=== PATIENT | male | born 1940 | race Caucasian/White ===

== ENCOUNTER 2018-02-06 08:48 | Inpatient (IN) | payer MEDICARE ==
[2018-02-06] MEDS: SODIUM CHLORIDE 0.9% 1,000 ML IV STA ×2 (09:15→15:38)
--- NOTE | 2018-02-06 09:16 | ED ---
General Adult HPI - General Chief complaint: GI Bleed Stated complaint: Gi bleed Time Seen by Provider: 02/06/18 08:50 Source: patient, RN notes reviewed Mode of arrival: EMS - History of Present Illness Initial comments: Patient 77-year-old male presenting by EMS transferred from [facility] for GI bleed. Patient states he woke up at 4:30 in the morning to have a bowel movement. States that he noticed blood in the toilet. He states he got himself or erythema to the hospital. States while in the hospital he had repeated bowel movements. He states he became lightheaded dizzy. He does admit that he is on Coumadin for A. fib. His INR was 3.8. His hemoglobin was 15.8. Patient was hypotensive and lightheaded was given 2 units of FFP along with vitamin K. Patient's was stable and transferred here for admission. Patient does admit that he's had a GI bleed in the past approximately 2 years ago. Patient denies any pain at this time. States he is feeling better denies any lightheadedness or dizziness currently. - Related Data Home Medications Medication Instructions Recorded Confirmed Allopurinol [Zyloprim] 300 mg PO DAILY 02/06/18 02/06/18 Atenolol [Tenormin] 50 mg PO DAILY 02/06/18 02/06/18 Losartan Potassium 100 mg PO DAILY 02/06/18 02/06/18 Ranitidine HCl [Zantac] 150 mg PO BID 02/06/18 02/06/18 Simvastatin [Zocor] 20 mg PO HS 02/06/18 02/06/18 Tadalafil [Cialis] 20 mg PO DAILY PRN 02/06/18 02/06/18 Warfarin [Coumadin] 2.5 mg PO SUTUTHSA 02/06/18 02/06/18 Warfarin [Coumadin] 5 mg PO MOWEFR 02/06/18 02/06/18 amLODIPine [Norvasc] 5 mg PO DAILY 02/06/18 02/06/18 Allergies Allergy/AdvReac Type Severity Reaction Status Date / Time No Known Allergies Allergy Verified 02/06/18 09:30 Review of Systems ROS Statement: Those systems with pertinent positive or pertinent negative responses have been documented in the HPI. ROS Other: All systems not noted in ROS Statement are negative. Past Medical History Past Medical History: Atrial Fibrillation, CVA/TIA, GI Bleed, Hypertension History of Any Multi-Drug Resistant Organisms: None Reported Past Surgical History: Joint Replacement Additional Past Surgical History / Comment(s): LIPOMA REMOVED FROM RIGHT GROIN, HIPS Past Psychological History: No Psychological Hx Reported Smoking Status: Never smoker Past Alcohol Use History: Daily Past Drug Use History: None Reported General Exam - General Exam Comments Initial Comments: General: The patient is awake and alert, in no distress, and does not appear acutely ill. Eye: Pupils are equal, round and reactive to light, extra-ocular movements are intact. No nystagmus. There is normal conjunctiva bilaterally. No signs of icterus. Ears, nose, mouth and throat: There are moist mucous membranes and no oral lesions. Neck: The neck is supple, there is no tenderness or JVD. Cardiovascular: There is a regular rate and rhythm. No murmur, rub or gallop is appreciated. Respiratory: Lungs are clear to auscultation, respirations are non-labored, breath sounds are equal. No wheezes, stridor, rales, or rhonchi. Gastrointestinal: Soft on palpation. No rebound tenderness. No guarding. Musculoskeletal: Normal ROM, no tenderness. Strength 5/5. Sensation intact. Pulses equal bilaterally 2+. Neurological: A&O x 3. CN II-XII intact, There are no obvious motor or sensory deficits. Coordination appears grossly intact. Speech is normal. Skin: Skin is warm and dry and no rashes or lesions are noted. Psychiatric: Cooperative, appropriate mood & affect, normal judgment. Course Vital Signs 02/06/18 08:55 Temperature 97.1 F L Pulse Rate 60 Respiratory 18 Rate Blood Pressure 139/73 O2 Sat by Pulse 99 Oximetry Medical Decision Making - Medical Decision Making Patient reexamined at this time shows no signs of distress. His vitals are stable. His hemoglobin 12.5 at this time. Patient's INR was 3.8 at [facility] this morning. Patient was given vitamin K with 2 units of fresh frozen plasma. Case discussed with attending physician Dr. Crain. Patient will be admitted to the hospital consult to GI. - Lab Data Result diagrams: 02/06/18 09:15 Lab Results 02/06/18 Range/Units 09:15 WBC 12.5 H (3.8-10.6) k/uL RBC 3.70 L (4.30-5.90) m/uL Hgb 12.3 L (13.0-17.5) gm/dL Hct 35.9 L (39.0-53.0) % MCV 96.9 (80.0-100.0) fL MCH 33.1 (25.0-35.0) pg MCHC 34.2 (31.0-37.0) g/dL RDW 14.4 (11.5-15.5) % Plt Count 229 (150-450) k/uL Neutrophils % 82 % Lymphocytes % 12 % Monocytes % 5 % Eosinophils % 1 % Basophils % 0 % Neutrophils # 10.3 H (1.3-7.7) k/uL Lymphocytes # 1.4 (1.0-4.8) k/uL Monocytes # 0.6 (0-1.0) k/uL Eosinophils # 0.1 (0-0.7) k/uL Basophils # 0.0 (0-0.2) k/uL Disposition Clinical Impression: GI bleed Disposition: ADMITTED IP TO THIS [facility] Condition: Stable Is patient prescribed a controlled substance at d/c from ED?: No Referrals: Pedro Cade MD [Primary Care Provider] - 1-2 days Time of Disposition: 10:04
[2018-02-06 09:34] LABS: Basophils % (A) 0 %; Eosinophils # (A) 0.1 k/uL (0-0.7); Eosinophils % (A) 1 %; HCT 35.9 % (39.0-53.0); HGB 12.3 gm/dL (13.0-17.5); Lymphocytes # (A) 1.4 k/uL (1.0-4.8); Lymphocytes % (A) 12 %; MCH 33.1 pg (25.0-35.0); MCHC 34.2 g/dL (31.0-37.0); MCV 96.9 fL (80.0-100.0); Mean Platelet Volume 6.9; Monocytes # (A) 0.6 k/uL (0-1.0); Monocytes % (A) 5 %; Neutrophils # (A) 10.3 k/uL (1.3-7.7); Neutrophils % (A) 82 %; Platelet Count 229 k/uL (150-450); RDW 14.4 % (11.5-15.5); WBC 12.5 k/uL (3.8-10.6)
[2018-02-06] MEDS ORDERED: NALOXONE 0.4 MG/ML 1 ML VIAL IV PRN (10:04)
[2018-02-06 11:42] LABS: Glucose,Whole Blood 143 mg/dL (75-99)
[2018-02-06] MEDS ORDERED: Potassium Replacement Protocol 1 EACH MISC MISCELLANE PRN (12:06)
--- NOTE | 2018-02-06 12:07 | P.CNPUL ---
History of Present Illness Consult date: 02/06/18 Requesting physician: Terrence Pérez Reason for consult: other (GI bleeding) Chief complaint: Bright red blood per rectum History of present illness: This is a 77-year-old white male with history of chronic atrial fibrillation, maintained on Coumadin. Patient is also known to have history of hypertension, gout, GERD, patient presented to the ER at [facility] today with sudden onset of GI bleeding, patient noticed bright red blood per rectum and in the toilet when he had his bowel movement earlier today. Patient also felt lightheaded and dizzy, his INR on presentation was 3.8, hemoglobin was 15.8, patient received 2 units of fresh frozen plasma and vitamin K 5 mg. Transferred to [facility], and he was admitted. Patient had a similar episode back in 2016 and he was seen by Dr. Buatista on consultation, underwent colonoscopy, and he was found to have no active bleeding but he did have diverticulosis. Patient takes his Coumadin as instructed, and again his INR was in the therapeutic range. Did not require any blood transfusion so far , patient had a small amount of bloody bowel movement earlier today in our ER. Considering the active bleeding, patient was admitted to the ICU, and I was asked to see him on consultation. GI was already consulted, and the patient is hemodynamically stable at present, presently on 0.9 normal saline at 125 mL per hour. Review of Systems 14 point review of systems were reviewed, refer to pertinent positives in HPI otherwise remaining systems are negative. 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 History of Any Multi-Drug Resistant Organisms: None Reported Past Surgical History: Joint Replacement Additional Past Surgical History / Comment(s): LIPOMA REMOVED FROM RIGHT GROIN, BILATERAL TOTAL HIP ARTHROPLASTY, SKIN CANCER REMOVALS, COLONOSCOPY, BILATERAL CATARACT REMOVALS WITH LENS IMPLANTS. Past Anesthesia/Blood Transfusion Reactions: No Reported Reaction Additional Past Anesthesia/Blood Transfusion Reaction / Comment(s): Pt received blood without reaction. Smoking Status: Former smoker - Past Family History Father Family Medical History: Cancer Additional Family Medical History / Comment(s): Father of cancer (pt does not know what type) at the age of 83 yrs. Mother Family Medical History: Cancer, CVA/TIA Additional Family Medical History / Comment(s): Mother of a CVA at the age of 56yrs. Medications and Allergies Home Medications Medication Instructions Recorded Confirmed Type Allopurinol [Zyloprim] 300 mg PO DAILY 02/06/18 02/06/18 History Atenolol [Tenormin] 50 mg PO DAILY 02/06/18 02/06/18 History Losartan Potassium 100 mg PO DAILY 02/06/18 02/06/18 History Ranitidine HCl [Zantac] 150 mg PO BID 02/06/18 02/06/18 History Simvastatin [Zocor] 20 mg PO HS 02/06/18 02/06/18 History Tadalafil [Cialis] 20 mg PO DAILY PRN 02/06/18 02/06/18 History Warfarin [Coumadin] 2.5 mg PO SUTUTHSA 02/06/18 02/06/18 History Warfarin [Coumadin] 5 mg PO MOWEFR 02/06/18 02/06/18 History amLODIPine [Norvasc] 5 mg PO DAILY 02/06/18 02/06/18 History Allergies Allergy/AdvReac Type Severity Reaction Status Date / Time No Known Allergies Allergy Verified 02/06/18 09:30 Physical Exam Vitals: Vital Signs Temp Pulse Resp BP Pulse Ox 02/06/18 11:30 98.1 F 75 16 134/65 98 02/06/18 10:36 68 18 136/63 98 02/06/18 10:04 71 18 157/79 98 02/06/18 09:45 68 18 159/72 97 02/06/18 08:55 97.1 F L 60 18 139/73 99 Intake and Output 02/05/18 02/06/18 02/06/18 22:59 06:59 14:59 Other: Weight 83.007 kg Physical Exam: Revealed a 77-year-old white male, very pleasant, in no distress. Head: Atraumatic normocephalic. HEENT:[Neck is supple.] [No neck masses.] [No thyromegaly.] [No JVD.] Chest: [Clear throughout, no crackles, no rhonchi, no wheezes.] Cardiac Exam: [Irregular irregular rhythm Normal S1 and S2, no S3 gallop, no murmur.] Abdomen: [Soft, nontender, no megaly, no rebound, no guarding, normal bowel sounds.] Extremities: [No clubbing, no edema, no cyanosis.] Neurological Exam: [No focal neurologic deficit. Psychiatric: Normal mood affect and mental status examination. Lymphatics: No lymphadenopathy was appreciated.] Results - Laboratory Findings CBC and BMP: 02/06/18 09:15 Abnormal lab findings: Abnormal Labs 02/06/18 02/06/18 09:15 11:40 WBC 12.5 H RBC 3.70 L Hgb 12.3 L Hct 35.9 L Neutrophils # 10.3 H POC Glucose (mg/dL) 143 H Assessment and Plan Assessment: Impression: 1: Acute lower GI bleeding most likely secondary to diverticulosis, exacerbated by the fact that the patient is on Coumadin. 2: Previous history of lower GI bleeding from diverticular disease back in 2016 , did not require any intervention except contrast. 3 previous history of CVA and left-sided weakness, resolved. 4 chronic atrial fibrillation 59 essential hypertension 6 history of gout 7 history of erectile dysfunction. Recommendation: Monitor the patient in the ICU, serial hemoglobin and hematocrit will be done, GI was consulted, most likely he will not require colonoscopy. Patient will be given Protonix empirically, we'll continue to follow closely. I believe the patient has clearly clear-cut evidence of contraindication to anticoagulation. I wouldn't recommend restarting Coumadin anytime in the near future. Time with Patient: Greater than 30
[2018-02-06 13:06] LABS: HCT 34.7 % (39.0-53.0); HGB 11.8 gm/dL (13.0-17.5); MCH 33.6 pg (25.0-35.0); MCHC 34.1 g/dL (31.0-37.0); MCV 98.5 fL (80.0-100.0); Mean Platelet Volume 7.2; Platelet Count 205 k/uL (150-450); RBC 3.52 m/uL (4.30-5.90); RDW 14.1 % (11.5-15.5); WBC 10.8 k/uL (3.8-10.6)
[2018-02-06 13:08] LABS: INR 2.1 (<1.2); Prothrombin Time 19.4 sec (9.0-12.0)
[2018-02-06] MEDS: PANTOPRAZOLE 40 MG/10 ML VIAL IVP SCH ×2 (13:13→21:38)
[2018-02-06 13:17] LABS: ALT 32 U/L (21-72); AST 27 U/L (17-59); Albumin 3.6 g/dL (3.5-5.0); Alkaline Phosphatase 50 U/L (38-126); Anion Gap 14 mmol/L; Blood Urea Nitrogen 11 mg/dL (9-20); Calcium 8.6 mg/dL (8.4-10.2); Carbon Dioxide 21 mmol/L (22-30); Chloride 104 mmol/L (98-107); Glucose 134 mg/dL (74-99); Magnesium 1.3 mg/dL (1.6-2.3); Phosphorus 3.8 mg/dL (2.5-4.5); Potassium 4.2 mmol/L (3.5-5.1); Sodium 139 mmol/L (137-145); Total Bilirubin 1.8 mg/dL (0.2-1.3)
[2018-02-06] MEDS: POTASSIUM CHLORIDE 10 MEQ in WATER FOR INJECTION 1 100ML.BAG IVPB SCH ×3 (14:00→21:56)
--- NOTE | 2018-02-06 14:47 | P.CONS ---
History of Present Illness - Reason for Consult Consult date: 02/06/18 GI bleed Requesting physician: Nirali Gonzalez - History of Present Illness 77-year-old male with a history of A. fib maintained on warfarin, colonic diverticulosis admitted with acute painless rectal bleeding. Bleeding started early this morning bright red in nature hourly bowel movements with lightheadedness dizziness. He was initially evaluated at [facility] and transferred to [place] shortly thereafter for further evaluation. Prior to transfer INR was 3.8. Hemoglobin 15.8. He received FFP and 5 mg of vitamin K. Presently hemoglobin is 11.8. INR is 2.1. BUN 11. Creatinine 0.5. Denies fever chills hematemesis or melena. Denies epigastric pain nausea or vomiting. No alcohol or NSAID usage. He has a history of lower GI bleed [address] [facility] underwent screening colonoscopy with findings colonic diverticulosis. No GI bleed since. Review of Systems Constitutional: Denies fever, chills, sweats, weight gain, or loss. HEENT: Negative for migraines, blurred vision or loss, earaches, drainage, tinnitus, oral mucosal lesions, dysphagia, or odynophagia. Cardiac: Negative for chest pain, arrhythmias, or palpitation. Respiratory: Negative for shortness of breath, hemoptysis, cough, or sputum production. Gastrointestinal: See HPI for pertinent findings. Genitourinary: Negative for hematuria, urgency, frequency, polyuria, dysuria, or penile discharge. Musculoskeletal: Negative for muscle aches, swelling, arthritis, and arthralgias. Neurologic: Negative for stroke or TIA. Endocrine: Negative for thyroid problems. Skin: Negative for rash or itching. 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 History of Any Multi-Drug Resistant Organisms: None Reported Past Surgical History: Joint Replacement Additional Past Surgical History / Comment(s): LIPOMA REMOVED FROM RIGHT GROIN, BILATERAL TOTAL HIP ARTHROPLASTY, SKIN CANCER REMOVALS, COLONOSCOPY, BILATERAL CATARACT REMOVALS WITH LENS IMPLANTS. Past Anesthesia/Blood Transfusion Reactions: No Reported Reaction Additional Past Anesthesia/Blood Transfusion Reaction / Comm: Pt received blood without reaction. Smoking Status: Former smoker - Past Family History Father Family Medical History: Cancer Additional Family Medical History / Comment(s): Father of cancer (pt does not know what type) at the age of 83 yrs. Mother Family Medical History: Cancer, CVA/TIA Additional Family Medical History / Comment(s): Mother of a CVA at the age of 56yrs. Medications and Allergies Home Medications Medication Instructions Recorded Confirmed Type Allopurinol [Zyloprim] 300 mg PO DAILY 02/06/18 02/06/18 History Atenolol [Tenormin] 50 mg PO DAILY 02/06/18 02/06/18 History Losartan Potassium 100 mg PO DAILY 02/06/18 02/06/18 History Ranitidine HCl [Zantac] 150 mg PO BID 02/06/18 02/06/18 History Simvastatin [Zocor] 20 mg PO HS 02/06/18 02/06/18 History Tadalafil [Cialis] 20 mg PO DAILY PRN 02/06/18 02/06/18 History Warfarin [Coumadin] 2.5 mg PO SUTUTHSA 02/06/18 02/06/18 History Warfarin [Coumadin] 5 mg PO MOWEFR 02/06/18 02/06/18 History amLODIPine [Norvasc] 5 mg PO DAILY 02/06/18 02/06/18 History Allergies Allergy/AdvReac Type Severity Reaction Status Date / Time No Known Allergies Allergy Verified 02/06/18 09:30 Physical Exam Vitals: Vital Signs Temp Pulse Resp BP Pulse Ox 02/06/18 13:00 68 12 123/69 99 02/06/18 12:30 79 19 136/74 100 02/06/18 12:00 97.8 F 73 23 150/87 99 02/06/18 11:41 98 02/06/18 11:30 98.1 F 75 16 134/65 98 02/06/18 10:36 68 18 136/63 98 02/06/18 10:04 71 18 157/79 98 02/06/18 09:45 68 18 159/72 97 02/06/18 08:55 97.1 F L 60 18 139/73 99 Intake and Output 02/05/18 02/06/18 02/06/18 22:59 06:59 14:59 Intake Total 100 Output Total 450 Balance -350 Intake: IV 100 Sodium Chloride 0.9% 1, 100 000 ml @ 100 mls/hr IV . Q10H STA Rx#:[id number] Output: Urine 400 Stool 50 Other: # Voids 1 # Bowel Movements 3 Weight 83.007 kg General appearance: The patient is alert, oriented, in no acute distress. HET: Head is normocephalic and atraumatic. Pupils are equal and reactive. Oropharynx is clear without lesions. Neck: Supple without lymphadenopathy. Trachea midline. Heart: S1 S2. Regular rate and rhythm. Lungs: No crackles or wheezes are heard. Abdomen: Soft, nontender, nondistended with bowel sounds. No peritoneal signs. No palpable organomegaly or masses. Extremities: Normal skin color and turgor. No cyanosis, rash, ulceration, clubbing, or edema. Radial and pedal pulses are 2/4 bilaterally. Neurological: No focal deficits. Strength and sensation are grossly intact. Rectal: Presently on bedpan burgundy colored bowel movements seen. Results CBC & Chem 7: 02/07/18 02:15 02/07/18 02:15 Labs: Abnormal Lab Results - Last 24 Hours (Table) 02/06/18 02/06/18 02/06/18 Range/Units 09:15 11:40 12:49 WBC 12.5 H (3.8-10.6) k/uL RBC 3.70 L (4.30-5.90) m/uL Hgb 12.3 L (13.0-17.5) gm/dL Hct 35.9 L (39.0-53.0) % Neutrophils # 10.3 H (1.3-7.7) k/uL PT (9.0-12.0) sec INR (<1.2) Carbon Dioxide 21 L (22-30) mmol/L Creatinine 0.58 L (0.66-1.25) mg/dL Glucose 134 H (74-99) mg/dL POC Glucose (mg/dL) 143 H (75-99) mg/dL Magnesium 1.3 L (1.6-2.3) mg/dL Total Bilirubin 1.8 H (0.2-1.3) mg/dL Total Protein 6.0 L (6.3-8.2) g/dL 02/06/18 02/06/18 Range/Units 12:49 12:49 WBC 10.8 H (3.8-10.6) k/uL RBC 3.52 L (4.30-5.90) m/uL Hgb 11.8 L (13.0-17.5) gm/dL Hct 34.7 L (39.0-53.0) % Neutrophils # (1.3-7.7) k/uL PT 19.4 H (9.0-12.0) sec INR 2.1 H (<1.2) Carbon Dioxide (22-30) mmol/L Creatinine (0.66-1.25) mg/dL Glucose (74-99) mg/dL POC Glucose (mg/dL) (75-99) mg/dL Magnesium (1.6-2.3) mg/dL Total Bilirubin (0.2-1.3) mg/dL Total Protein (6.3-8.2) g/dL Assessment and Plan (1) GI bleed Narrative/Plan: 77-year-old gentleman history of colonic diverticular bleed 2 years ago admitted with acute painless lower GI bleed burgundy color bowel movements hourly since early this morning with super therapeutic INR most likely exacerbating GI bleed. Suspect bleeding secondary to colonic diverticulosis however upper GI source cannot be entirely excluded. Current Visit: Yes Status: Acute Code(s): K92.2 - GASTROINTESTINAL HEMORRHAGE, UNSPECIFIED SNOMED Code(s): 02416270 (2) Acute blood loss anemia Current Visit: Yes Status: Acute Code(s): D62 - ACUTE POSTHEMORRHAGIC ANEMIA SNOMED Code(s): 046460670 (3) Colon, diverticulosis Current Visit: Yes Status: Acute Code(s): K57.30 - DVRTCLOS OF LG INT W/O PERFORATION OR ABSCESS W/O BLEEDING SNOMED Code(s): 045232656 (4) Warfarin-induced coagulopathy Current Visit: Yes Status: Acute Code(s): D68.32 - HEMORRHAGIC DISORD D/T EXTRINSIC CIRCULATING ANTICOAGULANTS; T45.515A - ADVERSE EFFECT OF ANTICOAGULANTS, INITIAL ENCOUNTER SNOMED Code(s): 76351611 Plan: 1. Nothing by mouth except medications ice chips and popsicles. 2. CBC every 6 hours. PT/INR am. ICU monitoring. 3. Consideration for a tagged RBC scan if bleeding does not improve. 4. Inpatient endoscopic exams not planned at this time last colonoscopy was 2 years ago we'll review medical records and place report on chart for review. 5. Protonix 40 mg IV daily. Hold Coumadin. We'll follow closely with you. Thank you for this kind referral and the opportunity to participate in the care of your patient. This consultation was discussed with Dr. Jimenez. The impression and plan of care have been directed as dictated.
[2018-02-06 15:18] LABS: HCT 28.2 % (39.0-53.0); MCH 33.4 pg (25.0-35.0); MCHC 34.3 g/dL (31.0-37.0); MCV 97.5 fL (80.0-100.0); Mean Platelet Volume 6.7; Platelet Count 208 k/uL (150-450); RBC 2.89 m/uL (4.30-5.90); RDW 14.4 % (11.5-15.5)
[2018-02-06 15:20] LABS: HGB 9.7 gm/dL (13.0-17.5)
--- NOTE | 2018-02-06 21:33 | P.HPIM ---
History of Present Illness This is a pleasant 87 years old male with past medical history of atrial fibrillation, CVA/TIA, GERD, GI bleed, hyperlipidemia, hypertension, osteoarthritis, who presents with possible lower GI bleed. Patient was noticed painless bleeding per rectum of one-day duration that was started this morning, associated with lightheadedness and dizziness. he was taking extra 2 tab of aspirin for the last two day on the top of his usual baby aspirin. Patient was transferred to the intensive care unit for possible lower GI bleed. His blood pressures in the ICU was 92/56 heart rate 75. Lab work shows creatinine at 0.5, sodium 139 potassium 4.2, magnesium low at 1.3 LFTs within normal limits. INR is 2.1 WBC 10 K, hemoglobin dropped from 12.3 to 9.7 platelet count 208, patient is getting 2 units of red blood cells and 2 units of fresh frozen plasma due to his coagulopathy. Review of Systems CONSTITUTIONAL: No fever, no malaise, no fatigue. HEENT: No recent visual problems or hearing problems. Denied any sore throat. CARDIOVASCULAR: No orthopnea, PND, no palpitations, no syncope. PULMONARY: No shortness of breath, no cough, no hemoptysis. GASTROINTESTINAL: No diarrhea, no nausea, no vomiting, no abdominal pain. Normoactive bowel sounds. NEUROLOGICAL: No headaches, no weakness, no numbness. HEMATOLOGICAL: Denies any bleeding or petechiae. GENITOURINARY: Denies any burning micturition, frequency, or urgency. MUSCULOSKELETAL/RHEUMATOLOGICAL: Denies any joint pain, swelling, or any muscle pain. ENDOCRINE: Denies any polyuria or polydipsia. 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 History of Any Multi-Drug Resistant Organisms: None Reported Past Surgical History: Joint Replacement Additional Past Surgical History / Comment(s): LIPOMA REMOVED FROM RIGHT GROIN, BILATERAL TOTAL HIP ARTHROPLASTY, SKIN CANCER REMOVALS, COLONOSCOPY, BILATERAL CATARACT REMOVALS WITH LENS IMPLANTS. Past Anesthesia/Blood Transfusion Reactions: No Reported Reaction Additional Past Anesthesia/Blood Transfusion Reaction / Comment(s): Pt received blood without reaction. Smoking Status: Former smoker - Past Family History Father Family Medical History: Cancer Additional Family Medical History / Comment(s): Father of cancer (pt does not know what type) at the age of 83 yrs. Mother Family Medical History: Cancer, CVA/TIA Additional Family Medical History / Comment(s): Mother of a CVA at the age of 56yrs. Medications and Allergies Home Medications Medication Instructions Recorded Confirmed Type Allopurinol [Zyloprim] 300 mg PO DAILY 02/06/18 02/06/18 History Atenolol [Tenormin] 50 mg PO DAILY 02/06/18 02/06/18 History Losartan Potassium 100 mg PO DAILY 02/06/18 02/06/18 History Ranitidine HCl [Zantac] 150 mg PO BID 02/06/18 02/06/18 History Simvastatin [Zocor] 20 mg PO HS 02/06/18 02/06/18 History Tadalafil [Cialis] 20 mg PO DAILY PRN 02/06/18 02/06/18 History Warfarin [Coumadin] 2.5 mg PO SUTUTHSA 02/06/18 02/06/18 History Warfarin [Coumadin] 5 mg PO MOWEFR 02/06/18 02/06/18 History amLODIPine [Norvasc] 5 mg PO DAILY 02/06/18 02/06/18 History Allergies Allergy/AdvReac Type Severity Reaction Status Date / Time No Known Allergies Allergy Verified 02/06/18 09:30 Physical Exam Vitals: Vital Signs Temp Pulse Resp BP Pulse Ox 02/06/18 11:30 98.1 F 75 16 134/65 98 02/06/18 10:36 68 18 136/63 98 02/06/18 10:04 71 18 157/79 98 02/06/18 09:45 68 18 159/72 97 02/06/18 08:55 97.1 F L 60 18 139/73 99 Intake and Output 02/05/18 02/06/18 02/06/18 22:59 06:59 14:59 Other: Weight 83.007 kg GENERAL: The patient is alert and oriented x3, not in any acute distress. Well developed, well nourished. HEENT: Pupils are round and equally reacting to light. EOMI. No scleral icterus. No conjunctival pallor. Normocephalic, atraumatic. No pharyngeal erythema. No thyromegaly. CARDIOVASCULAR: S1 and S2 present. No murmurs, rubs, or gallops. PULMONARY: Chest is clear to auscultation, no wheezing or crackles. ABDOMEN: Soft, nontender, nondistended, normoactive bowel sounds. No palpable organomegaly. MUSCULOSKELETAL: No joint swelling or deformity. EXTREMITIES: No cyanosis, clubbing, or pedal edema. NEUROLOGICAL: Gross neurological examination did not reveal any focal deficits. SKIN: No rashes. Results CBC & Chem 7: 02/06/18 15:15 02/06/18 12:49 Labs: Abnormal Lab Results - Last 24 Hours (Table) 02/06/18 02/06/18 Range/Units 09:15 11:40 WBC 12.5 H (3.8-10.6) k/uL RBC 3.70 L (4.30-5.90) m/uL Hgb 12.3 L (13.0-17.5) gm/dL Hct 35.9 L (39.0-53.0) % Neutrophils # 10.3 H (1.3-7.7) k/uL POC Glucose (mg/dL) 143 H (75-99) mg/dL Thrombosis Risk Factor Assmnt - Choose All That Apply Any of the Below Risk Factors Present?: Yes Each Factor Represents 1 point: Obesity (BMI >25) Other Risk Factors: Yes Each Risk Factor Represents 2 Points: Age 61-74 years, Malignancy Other congenital or acquired thrombophilia - If yes, enter type in comment: No Thrombosis Risk Factor Assessment Total Risk Factor Score: 5 Thrombosis Risk Factor Assessment Level: High Risk Assessment and Plan Plan: -Acute painless rectal bleeding, with a drop in hemoglobin and blood pressure. Patient admitted to the ICU. Monitor lytes labs and vitals. GI and hyperbaric welder diver consult are appreciated. They recommended RBC scan if the bleeding does not improve. Holding Coumadin. Continue with Protonix. No colonoscopy is planned currently as per consult team -Coagulopathy with INR 2.1, patient was on Coumadin which is held in view of acute bleeding per rectum, patient got 2 units of PPF. Follow-up INR. Most likely he would not be started on Coumadin again as per hyperbaric welder diver recommendation -History of CVA/TIA, and in view of history of A. fib and stroke he was on Coumadin. DC Coumadin now for active bleeding. also DC aspirin -History of A. fib, DC Coumadin as above. Hold atenolol in view of low blood pressure and active bleeding -Hypertension. Hold atenolol 50 mg daily and losartan 100 mg daily and Norvasc 5 mg daily in view of his low blood pressure -History of hyperlipidemia, was on Zocor 20 mg daily DVT prophylaxis SCDs, no anticoagulation in view of bleeding GI prophylaxis continue with Protonix Prognosis is guarded
[2018-02-07 02:34] LABS: HCT 25.9 % (39.0-53.0); HGB 8.6 gm/dL (13.0-17.5); MCH 31.8 pg (25.0-35.0); MCHC 33.4 g/dL (31.0-37.0); MCV 95.5 fL (80.0-100.0); Mean Platelet Volume 7.6; Platelet Count 144 k/uL (150-450); RBC 2.71 m/uL (4.30-5.90); WBC 9.3 k/uL (3.8-10.6)
[2018-02-07 02:38] LABS: INR 1.4 (<1.2); Prothrombin Time 13.2 sec (9.0-12.0)
[2018-02-07 02:47] LABS: ALT 31 U/L (21-72); AST 22 U/L (17-59); Albumin 2.8 g/dL (3.5-5.0); Alkaline Phosphatase 34 U/L (38-126); Anion Gap 10 mmol/L; Blood Urea Nitrogen 12 mg/dL (9-20); Calcium 7.5 mg/dL (8.4-10.2); Carbon Dioxide 23 mmol/L (22-30); Chloride 107 mmol/L (98-107); Glucose 131 mg/dL (74-99); Magnesium 1.3 mg/dL (1.6-2.3); Phosphorus 3.3 mg/dL (2.5-4.5); Potassium 3.7 mmol/L (3.5-5.1); Sodium 140 mmol/L (137-145); Total Bilirubin 2.8 mg/dL (0.2-1.3); Total Protein 4.8 g/dL (6.3-8.2)
[2018-02-07] MEDS ORDERED: Potassium Replacement Protocol 1 EACH MISC MISCELLANE PRN ×2 (03:20→16:21)
[2018-02-07] MEDS ORDERED: Magnesium Replacement Protocol 1 EACH MISC MISCELLANE PRN (03:21)
[2018-02-07] MEDS: MAGNESIUM SULFATE-D5W PMX 1 GM in DEXTROSE/WATER 1 100ML.BAG IVPB SCH ×5 (04:57→18:49)
[2018-02-07 08:57] LABS: HCT 23.6 % (39.0-53.0); HGB 7.9 gm/dL (13.0-17.5); MCH 32.2 pg (25.0-35.0); MCHC 33.6 g/dL (31.0-37.0); Mean Platelet Volume 7.1; Platelet Count 140 k/uL (150-450); RBC 2.46 m/uL (4.30-5.90); RDW 15.5 % (11.5-15.5); WBC 9.3 k/uL (3.8-10.6)
[2018-02-07] MEDS: PANTOPRAZOLE 40 MG/10 ML VIAL IVP SCH ×2 (09:59→20:25)
[2018-02-07] MEDS ORDERED: MAGNESIUM SULFATE-D5W PMX 1 GM in DEXTROSE/WATER 1 100ML.BAG IVPB SCH (10:00)
--- NOTE | 2018-02-07 10:11 | P.PN ---
Subjective Progress Note Date: 02/07/18 Principal diagnosis: GI bleed Admitted with suspected colonic diverticular bleed. Still passing dark red maroon-colored bowel movements but less in frequency and quantity. Denies abdominal pain. Afebrile. No emesis. Hemoglobin 7.9. INR 1.4. Increased total bilirubin 2.8. AST ALT AP unremarkable. Received 2 units of blood 2 FFP since admission. Objective - Vital Signs Vital signs: Vital Signs Temp 98.2 F 02/07/18 08:30 Pulse 68 02/07/18 09:00 Resp 16 02/07/18 09:00 BP 119/65 02/07/18 09:00 Pulse Ox 99 02/07/18 09:00 Intake & Output 02/06/18 02/07/18 02/07/18 18:59 06:59 18:59 Intake Total 2366 2416 300 Output Total 850 580 315 Balance 1516 1836 -15 Weight 83.007 kg 85.3 kg Intake: IV 1450 1500 300 Sodium Chloride 0.9% 1, 1450 1500 300 000 ml @ 100 mls/hr IV . Q10H STA Rx#:[id number] Blood Product 916 916 Ffp 24 Cpd Unit 310 [id number] Ffp 24 Cpd Unit 0 296 [id number] Rc As-1 Unit 310 [id number] Rc As-1 Unit 310 [id number] Output: Urine 800 480 275 Stool 50 100 40 Other: Voiding Method Urinal Urinal # Voids 2 2 # Bowel Movements 5 5 - Exam General appearance: The patient is alert, oriented, in no acute distress. HET: Head is normocephalic and atraumatic. Pupils are equal and reactive. Oropharynx is clear without lesions. Neck: Supple without lymphadenopathy. Trachea midline. Heart: S1 S2. Regular rate and rhythm. Lungs: No crackles or wheezes are heard. Abdomen: Soft, nontender, nondistended with bowel sounds. No peritoneal signs. No palpable organomegaly or masses. Extremities: Normal skin color and turgor. No cyanosis, rash, ulceration, clubbing, or edema. Radial and pedal pulses are 2/4 bilaterally. Neurological: No focal deficits. Strength and sensation are grossly intact. - Labs CBC & Chem 7: 02/07/18 08:42 02/07/18 02:15 Labs: Abnormal Lab Results - Last 24 Hours (Table) 02/06/18 02/06/18 02/06/18 Range/Units 11:40 12:49 12:49 WBC 10.8 H (3.8-10.6) k/uL RBC 3.52 L (4.30-5.90) m/uL Hgb 11.8 L (13.0-17.5) gm/dL Hct 34.7 L (39.0-53.0) % Plt Count (150-450) k/uL PT (9.0-12.0) sec INR (<1.2) Carbon Dioxide 21 L (22-30) mmol/L Creatinine 0.58 L (0.66-1.25) mg/dL Glucose 134 H (74-99) mg/dL POC Glucose (mg/dL) 143 H (75-99) mg/dL Calcium (8.4-10.2) mg/dL Magnesium 1.3 L (1.6-2.3) mg/dL Total Bilirubin 1.8 H (0.2-1.3) mg/dL Alkaline Phosphatase (38-126) U/L Total Protein 6.0 L (6.3-8.2) g/dL Albumin (3.5-5.0) g/dL Crossmatch 02/06/18 02/06/18 02/06/18 Range/Units 12:49 15:15 15:23 WBC (3.8-10.6) k/uL RBC 2.89 L (4.30-5.90) m/uL Hgb 9.7 L D (13.0-17.5) gm/dL Hct 28.2 L (39.0-53.0) % Plt Count (150-450) k/uL PT 19.4 H (9.0-12.0) sec INR 2.1 H (<1.2) Carbon Dioxide (22-30) mmol/L Creatinine (0.66-1.25) mg/dL Glucose (74-99) mg/dL POC Glucose (mg/dL) (75-99) mg/dL Calcium (8.4-10.2) mg/dL Magnesium (1.6-2.3) mg/dL Total Bilirubin (0.2-1.3) mg/dL Alkaline Phosphatase (38-126) U/L Total Protein (6.3-8.2) g/dL Albumin (3.5-5.0) g/dL Crossmatch See Detail 02/07/18 02/07/18 02/07/18 Range/Units 02:15 02:15 02:15 WBC (3.8-10.6) k/uL RBC 2.71 L (4.30-5.90) m/uL Hgb 8.6 L (13.0-17.5) gm/dL Hct 25.9 L (39.0-53.0) % Plt Count 144 L (150-450) k/uL PT 13.2 H (9.0-12.0) sec INR 1.4 H (<1.2) Carbon Dioxide (22-30) mmol/L Creatinine (0.66-1.25) mg/dL Glucose 131 H (74-99) mg/dL POC Glucose (mg/dL) (75-99) mg/dL Calcium 7.5 L (8.4-10.2) mg/dL Magnesium 1.3 L (1.6-2.3) mg/dL Total Bilirubin 2.8 H (0.2-1.3) mg/dL Alkaline Phosphatase 34 L (38-126) U/L Total Protein 4.8 L (6.3-8.2) g/dL Albumin 2.8 L (3.5-5.0) g/dL Crossmatch 02/07/18 Range/Units 08:42 WBC (3.8-10.6) k/uL RBC 2.46 L (4.30-5.90) m/uL Hgb 7.9 L (13.0-17.5) gm/dL Hct 23.6 L (39.0-53.0) % Plt Count 140 L (150-450) k/uL PT (9.0-12.0) sec INR (<1.2) Carbon Dioxide (22-30) mmol/L Creatinine (0.66-1.25) mg/dL Glucose (74-99) mg/dL POC Glucose (mg/dL) (75-99) mg/dL Calcium (8.4-10.2) mg/dL Magnesium (1.6-2.3) mg/dL Total Bilirubin (0.2-1.3) mg/dL Alkaline Phosphatase (38-126) U/L Total Protein (6.3-8.2) g/dL Albumin (3.5-5.0) g/dL Crossmatch Assessment and Plan (1) GI bleed Narrative/Plan: 77-year-old gentleman history of colonic diverticular bleed 2 years ago admitted with acute painless lower GI bleed burgundy color bowel movements hourly since early this morning with super therapeutic INR most likely exacerbating GI bleed. Suspect bleeding secondary to colonic diverticulosis however upper GI source cannot be entirely excluded. Current Visit: Yes Status: Acute Code(s): K92.2 - GASTROINTESTINAL HEMORRHAGE, UNSPECIFIED SNOMED Code(s): 05600778 (2) Acute blood loss anemia Current Visit: Yes Status: Acute Code(s): D62 - ACUTE POSTHEMORRHAGIC ANEMIA SNOMED Code(s): 972839072 (3) Colon, diverticulosis Current Visit: Yes Status: Acute Code(s): K57.30 - DVRTCLOS OF LG INT W/O PERFORATION OR ABSCESS W/O BLEEDING SNOMED Code(s): 568426595 (4) Warfarin-induced coagulopathy Current Visit: Yes Status: Acute Code(s): D68.32 - HEMORRHAGIC DISORD D/T EXTRINSIC CIRCULATING ANTICOAGULANTS; T45.515A - ADVERSE EFFECT OF ANTICOAGULANTS, INITIAL ENCOUNTER SNOMED Code(s): 19486451 (5) Hyperbilirubinemia Narrative/Plan: Most likely from acute GI bleed Current Visit: Yes Status: Acute Code(s): E80.6 - OTHER DISORDERS OF BILIRUBIN METABOLISM SNOMED Code(s): 26398458 Plan: 1. CBC monitoring. Continue to hold anticoagulation. 2. Protonix 40 mg twice daily. 3. Nothing by mouth except medications and ice chips sparingly. 4. Inpatient endoscopic exam not planned at this time but contingent on clinical course. Assessment and plan a care discussed with Dr. Jimenez
--- NOTE | 2018-02-07 10:13 | P.PN ---
Subjective This is a pleasant 87 years old male with past medical history of atrial fibrillation, CVA/TIA, GERD, GI bleed, hyperlipidemia, hypertension, osteoarthritis, who presents with possible lower GI bleed. Patient was noticed painless bleeding per rectum of one-day duration that was started this morning, associated with lightheadedness and dizziness. he was taking extra 2 tab of aspirin for the last two day on the top of his usual baby aspirin for his headache which is improved now. Patient was transferred to the intensive care unit for possible lower GI bleed. His blood pressures in the ICU was 92/56 heart rate 75. Lab work shows creatinine at 0.5, sodium 139 potassium 4.2, magnesium low at 1.3 LFTs within normal limits. INR is 2.1 WBC 10 K, hemoglobin dropped from 12.3 to 9.7 platelet count 208, patient is getting 2 units of red blood cells and 2 units of fresh frozen plasma due to his coagulopathy. 02/07/2018 Patient feels better. He denies chest pain or dyspnea. No more headache. No abdominal pain. He still have bleeding per rectum which is painless. His blood pressure is improved and is 119/65, no tachycardia. His hemoglobin is at 7.9, platelets low at 140, WBC 9.3K WNL, INR is down to 1.4, and magnesium is low at 1.3 ROS CONSTITUTIONAL: No fever, no malaise, no fatigue. HEENT: No recent visual problems or hearing problems. Denied any sore throat. CARDIOVASCULAR: No orthopnea, PND, no palpitations, no syncope. PULMONARY: No shortness of breath, no cough, no hemoptysis. GASTROINTESTINAL: No diarrhea, no nausea, no vomiting, no abdominal pain. Normoactive bowel sounds. NEUROLOGICAL: No headaches, no weakness, no numbness. HEMATOLOGICAL: Denies any bleeding or petechiae. GENITOURINARY: Denies any burning micturition, frequency, or urgency. MUSCULOSKELETAL/RHEUMATOLOGICAL: Denies any joint pain, swelling, or any muscle pain. ENDOCRINE: Denies any polyuria or polydipsia. Objective - Vital Signs Vital signs: Vital Signs Temp 98.2 F 02/07/18 08:30 Pulse 68 02/07/18 09:00 Resp 16 02/07/18 09:00 BP 119/65 02/07/18 09:00 Pulse Ox 99 02/07/18 09:00 Intake & Output 02/06/18 02/07/18 02/07/18 18:59 06:59 18:59 Intake Total 2366 2416 300 Output Total 850 580 315 Balance 1516 1836 -15 Weight 83.007 kg 85.3 kg Intake: IV 1450 1500 300 Sodium Chloride 0.9% 1, 1450 1500 300 000 ml @ 100 mls/hr IV . Q10H STA Rx#:[id number] Blood Product 916 916 Ffp 24 Cpd Unit 310 [id number] Ffp 24 Cpd Unit 0 296 [id number] Rc As-1 Unit 310 [id number] Rc As-1 Unit 310 [id number] Output: Urine 800 480 275 Stool 50 100 40 Other: Voiding Method Urinal Urinal # Voids 2 2 # Bowel Movements 5 5 - Exam GENERAL: The patient is alert and oriented x3, not in any acute distress. Well developed, well nourished. HEENT: Pupils are round and equally reacting to light. EOMI. No scleral icterus. No conjunctival pallor. Normocephalic, atraumatic. No pharyngeal erythema. No thyromegaly. CARDIOVASCULAR: S1 and S2 present. No murmurs, rubs, or gallops. PULMONARY: Chest is clear to auscultation, no wheezing or crackles. ABDOMEN: Soft, nontender, nondistended, normoactive bowel sounds. No palpable organomegaly. MUSCULOSKELETAL: No joint swelling or deformity. EXTREMITIES: No cyanosis, clubbing, or pedal edema. NEUROLOGICAL: Gross neurological examination did not reveal any focal deficits. SKIN: No rashes. - Labs CBC & Chem 7: 02/07/18 08:42 02/07/18 02:15 Labs: Abnormal Lab Results - Last 24 Hours (Table) 02/06/18 02/06/18 02/06/18 Range/Units 11:40 12:49 12:49 WBC 10.8 H (3.8-10.6) k/uL RBC 3.52 L (4.30-5.90) m/uL Hgb 11.8 L (13.0-17.5) gm/dL Hct 34.7 L (39.0-53.0) % Plt Count (150-450) k/uL PT (9.0-12.0) sec INR (<1.2) Carbon Dioxide 21 L (22-30) mmol/L Creatinine 0.58 L (0.66-1.25) mg/dL Glucose 134 H (74-99) mg/dL POC Glucose (mg/dL) 143 H (75-99) mg/dL Calcium (8.4-10.2) mg/dL Magnesium 1.3 L (1.6-2.3) mg/dL Total Bilirubin 1.8 H (0.2-1.3) mg/dL Alkaline Phosphatase (38-126) U/L Total Protein 6.0 L (6.3-8.2) g/dL Albumin (3.5-5.0) g/dL Crossmatch 02/06/18 02/06/18 02/06/18 Range/Units 12:49 15:15 15:23 WBC (3.8-10.6) k/uL RBC 2.89 L (4.30-5.90) m/uL Hgb 9.7 L D (13.0-17.5) gm/dL Hct 28.2 L (39.0-53.0) % Plt Count (150-450) k/uL PT 19.4 H (9.0-12.0) sec INR 2.1 H (<1.2) Carbon Dioxide (22-30) mmol/L Creatinine (0.66-1.25) mg/dL Glucose (74-99) mg/dL POC Glucose (mg/dL) (75-99) mg/dL Calcium (8.4-10.2) mg/dL Magnesium (1.6-2.3) mg/dL Total Bilirubin (0.2-1.3) mg/dL Alkaline Phosphatase (38-126) U/L Total Protein (6.3-8.2) g/dL Albumin (3.5-5.0) g/dL Crossmatch See Detail 02/07/18 02/07/18 02/07/18 Range/Units 02:15 02:15 02:15 WBC (3.8-10.6) k/uL RBC 2.71 L (4.30-5.90) m/uL Hgb 8.6 L (13.0-17.5) gm/dL Hct 25.9 L (39.0-53.0) % Plt Count 144 L (150-450) k/uL PT 13.2 H (9.0-12.0) sec INR 1.4 H (<1.2) Carbon Dioxide (22-30) mmol/L Creatinine (0.66-1.25) mg/dL Glucose 131 H (74-99) mg/dL POC Glucose (mg/dL) (75-99) mg/dL Calcium 7.5 L (8.4-10.2) mg/dL Magnesium 1.3 L (1.6-2.3) mg/dL Total Bilirubin 2.8 H (0.2-1.3) mg/dL Alkaline Phosphatase 34 L (38-126) U/L Total Protein 4.8 L (6.3-8.2) g/dL Albumin 2.8 L (3.5-5.0) g/dL Crossmatch 02/07/18 Range/Units 08:42 WBC (3.8-10.6) k/uL RBC 2.46 L (4.30-5.90) m/uL Hgb 7.9 L (13.0-17.5) gm/dL Hct 23.6 L (39.0-53.0) % Plt Count 140 L (150-450) k/uL PT (9.0-12.0) sec INR (<1.2) Carbon Dioxide (22-30) mmol/L Creatinine (0.66-1.25) mg/dL Glucose (74-99) mg/dL POC Glucose (mg/dL) (75-99) mg/dL Calcium (8.4-10.2) mg/dL Magnesium (1.6-2.3) mg/dL Total Bilirubin (0.2-1.3) mg/dL Alkaline Phosphatase (38-126) U/L Total Protein (6.3-8.2) g/dL Albumin (3.5-5.0) g/dL Crossmatch Assessment and Plan Plan: -Acute painless rectal bleeding, with a drop in hemoglobin and blood pressure. Patient admitted to the ICU. Monitor lytes labs and vitals. GI and art educator consult are appreciated. They recommended RBC scan if the bleeding does not improve. Holding Coumadin. Continue with Protonix. No colonoscopy is planned currently as per consult team -Coagulopathy with INR 2.1 down to 1.4, patient was on Coumadin which is held in view of acute bleeding per rectum, patient got 2 units of PPF. Follow-up INR. Most likely he would not be started on Coumadin again as per intensive unit specialist recommendation -History of CVA/TIA, and in view of history of A. fib and stroke he was on Coumadin. DC Coumadin now for active bleeding. also DC aspirin as the risk of this medication more than benefits -History of A. fib, DC Coumadin as above. Hold atenolol in view of low blood pressure and active bleeding -Hypertension. Hold atenolol 50 mg daily and losartan 100 mg daily and Norvasc 5 mg daily in view of his low blood pressure -History of hyperlipidemia, was on Zocor 20 mg daily DVT prophylaxis SCDs, no anticoagulation in view of bleeding GI prophylaxis continue with Protonix Prognosis is guarded
[2018-02-07] MEDS: POTASSIUM CHLORIDE 10 MEQ in WATER FOR INJECTION 1 100ML.BAG IVPB SCH ×4 (10:34→18:49)
--- NOTE | 2018-02-07 11:28 | P.PN ---
Subjective Progress Note Date: 02/07/18 Principal diagnosis: Acute GI bleeding This is a 77-year-old white male with history of chronic atrial fibrillation, maintained on Coumadin. Patient is also known to have history of hypertension, gout, GERD, patient presented to the ER at [facility] today with sudden onset of GI bleeding, patient noticed bright red blood per rectum and in the toilet when he had his bowel movement earlier today. Patient also felt lightheaded and dizzy, his INR on presentation was 3.8, hemoglobin was 15.8, patient received 2 units of fresh frozen plasma and vitamin K 5 mg. Transferred to [facility], and he was admitted. Patient had a similar episode back in 2015 and he was seen by Dr. Bautista on consultation, underwent colonoscopy, and he was found to have no active bleeding but he did have diverticulosis. Patient takes his Coumadin as instructed, and again his INR was in the therapeutic range. Did not require any blood transfusion so far , patient had a small amount of bloody bowel movement earlier today in our ER. Considering the active bleeding, patient was admitted to the ICU, and I was asked to see him on consultation. GI was already consulted, and the patient is hemodynamically stable at present, presently on 0.9 normal saline at 125 mL per hour. Patient was reevaluated today on 02/07/2018, had another bowel movement which was bloody this morning around 8 AM, but the quantity of bleeding was less. Patient denies any abdominal pain, no fever, no chills, no nausea no vomiting, no hematemesis. Hemoglobin this morning is 7.9, his INR is down to 1.4. So far the patient received a total of 2 units of packed RBCs since admission, and 2 units of fresh frozen plasma. His hemoglobin prior to any blood transfusion was 12.3. And it was a bit higher while he was initially seen at [facility]. Patient is hemodynamically stable, he is basically asymptomatic, but he did have a bloody bowel movement earlier today. Hence I plan to watch him for the next 24 hours in the intensive care unit. Objective - Vital Signs Vital signs: Vital Signs Temp 98.2 F 02/07/18 08:30 Pulse 67 02/07/18 10:00 Resp 17 02/07/18 10:00 BP 114/58 02/07/18 10:00 Pulse Ox 100 02/07/18 10:00 Intake & Output 02/06/18 02/07/18 02/07/18 18:59 06:59 18:59 Intake Total 2366 2416 700 Output Total 850 580 365 Balance 1516 1836 335 Weight 83.007 kg 85.3 kg 85.3 kg Intake: IV 1450 1500 700 Magnesium Sulfate-D5w Pmx 100 1 gm In Dextrose/Water 1 100ml.bag @ 100 mls/hr IVPB Q1H JEWEL Rx#: [id number] Potassium Chloride 10 meq 100 In Water For Injection 1 100ml.bag @ 100 mls/hr IVPB Q1H JEWEL Rx#: [id number] Sodium Chloride 0.9% 1, 1450 1500 500 000 ml @ 100 mls/hr IV . Q10H STA Rx#:[id number] Blood Product 916 916 Ffp 24 Cpd Unit 310 [id number] Ffp 24 Cpd Unit 0 296 [id number] Rc As-1 Unit 310 [id number] Rc As-1 Unit 310 [id number] Output: Urine 800 480 325 Stool 50 100 40 Other: Voiding Method Urinal Urinal Urinal # Voids 2 2 # Bowel Movements 5 5 - Exam Physical Exam: Revealed a 77-year-old white male, very pleasant, in no distress. Head: Atraumatic normocephalic. HEENT:[Neck is supple.] [No neck masses.] [No thyromegaly.] [No JVD.] Chest: [Clear throughout, no crackles, no rhonchi, no wheezes.] Cardiac Exam: [Irregular irregular rhythm Normal S1 and S2, no S3 gallop, no murmur.] Abdomen: [Soft, nontender, no megaly, no rebound, no guarding, normal bowel sounds.] Extremities: [No clubbing, no edema, no cyanosis.] Neurological Exam: [No focal neurologic deficit. Psychiatric: Normal mood affect and mental status examination. Lymphatics: No lymphadenopathy was appreciated.] - Labs CBC & Chem 7: 02/07/18 08:42 02/07/18 02:15 Labs: Abnormal Lab Results - Last 24 Hours (Table) 02/06/18 02/06/18 02/06/18 Range/Units 11:40 12:49 12:49 WBC 10.8 H (3.8-10.6) k/uL RBC 3.52 L (4.30-5.90) m/uL Hgb 11.8 L (13.0-17.5) gm/dL Hct 34.7 L (39.0-53.0) % Plt Count (150-450) k/uL PT (9.0-12.0) sec INR (<1.2) Carbon Dioxide 21 L (22-30) mmol/L Creatinine 0.58 L (0.66-1.25) mg/dL Glucose 134 H (74-99) mg/dL POC Glucose (mg/dL) 143 H (75-99) mg/dL Calcium (8.4-10.2) mg/dL Magnesium 1.3 L (1.6-2.3) mg/dL Total Bilirubin 1.8 H (0.2-1.3) mg/dL Alkaline Phosphatase (38-126) U/L Total Protein 6.0 L (6.3-8.2) g/dL Albumin (3.5-5.0) g/dL Crossmatch 02/06/18 02/06/18 02/06/18 Range/Units 12:49 15:15 15:23 WBC (3.8-10.6) k/uL RBC 2.89 L (4.30-5.90) m/uL Hgb 9.7 L D (13.0-17.5) gm/dL Hct 28.2 L (39.0-53.0) % Plt Count (150-450) k/uL PT 19.4 H (9.0-12.0) sec INR 2.1 H (<1.2) Carbon Dioxide (22-30) mmol/L Creatinine (0.66-1.25) mg/dL Glucose (74-99) mg/dL POC Glucose (mg/dL) (75-99) mg/dL Calcium (8.4-10.2) mg/dL Magnesium (1.6-2.3) mg/dL Total Bilirubin (0.2-1.3) mg/dL Alkaline Phosphatase (38-126) U/L Total Protein (6.3-8.2) g/dL Albumin (3.5-5.0) g/dL Crossmatch See Detail 06/03/2002/07/18 02/07/18 Range/Units 02:15 02:15 02:15 WBC (3.8-10.6) k/uL RBC 2.71 L (4.30-5.90) m/uL Hgb 8.6 L (13.0-17.5) gm/dL Hct 25.9 L (39.0-53.0) % Plt Count 144 L (150-450) k/uL PT 13.2 H (9.0-12.0) sec INR 1.4 H (<1.2) Carbon Dioxide (22-30) mmol/L Creatinine (0.66-1.25) mg/dL Glucose 131 H (74-99) mg/dL POC Glucose (mg/dL) (75-99) mg/dL Calcium 7.5 L (8.4-10.2) mg/dL Magnesium 1.3 L (1.6-2.3) mg/dL Total Bilirubin 2.8 H (0.2-1.3) mg/dL Alkaline Phosphatase 34 L (38-126) U/L Total Protein 4.8 L (6.3-8.2) g/dL Albumin 2.8 L (3.5-5.0) g/dL Crossmatch 02/07/18 Range/Units 08:42 WBC (3.8-10.6) k/uL RBC 2.46 L (4.30-5.90) m/uL Hgb 7.9 L (13.0-17.5) gm/dL Hct 23.6 L (39.0-53.0) % Plt Count 140 L (150-450) k/uL PT (9.0-12.0) sec INR (<1.2) Carbon Dioxide (22-30) mmol/L Creatinine (0.66-1.25) mg/dL Glucose (74-99) mg/dL POC Glucose (mg/dL) (75-99) mg/dL Calcium (8.4-10.2) mg/dL Magnesium (1.6-2.3) mg/dL Total Bilirubin (0.2-1.3) mg/dL Alkaline Phosphatase (38-126) U/L Total Protein (6.3-8.2) g/dL Albumin (3.5-5.0) g/dL Crossmatch Assessment and Plan Assessment: Impression: 1: Acute lower GI bleeding most likely secondary to diverticulosis, exacerbated by the fact that the patient is on Coumadin. 2: Previous history of lower GI bleeding from diverticular disease back in 2016 , did not require any intervention except contrast. 3 previous history of CVA and left-sided weakness, resolved. 4 chronic atrial fibrillation 59 essential hypertension 6 history of gout 7 history of erectile dysfunction. 8 Coumadin induced coagulopathy. Recommendation: Monitor the patient in the ICU, continue to monitor serial hemoglobin and hematocrit , GI is following. Continue Protonix empirically. Patient is not quite ready yet to be transferred out of the ICU. We will likely transfer out of the ICU in the next 24 hours assuming hemoglobin remains stable, and no active bleeding noted. Time with Patient: Less than 30
[2018-02-07] MEDS: SODIUM CHLORIDE 0.9% 1,000 ML IV SCH ×2 (12:00→20:27)
[2018-02-07 15:46] LABS: HCT 25.9 % (39.0-53.0); HGB 8.9 gm/dL (13.0-17.5); MCH 32.5 pg (25.0-35.0); MCHC 34.3 g/dL (31.0-37.0); MCV 94.9 fL (80.0-100.0); Mean Platelet Volume 7.4; Platelet Count 125 k/uL (150-450); RBC 2.73 m/uL (4.30-5.90); RDW 15.3 % (11.5-15.5); WBC 8.5 k/uL (3.8-10.6)
[2018-02-07 15:54] LABS: Magnesium 1.9 mg/dL (1.6-2.3); Potassium 3.5 mmol/L (3.5-5.1)
[2018-02-07 21:17] LABS: HCT 26.2 % (39.0-53.0); MCH 32.1 pg (25.0-35.0); MCHC 34.2 g/dL (31.0-37.0); MCV 93.7 fL (80.0-100.0); Mean Platelet Volume 7.3; Platelet Count 135 k/uL (150-450); RBC 2.79 m/uL (4.30-5.90); RDW 15.2 % (11.5-15.5); WBC 9.9 k/uL (3.8-10.6)
[2018-02-08 04:17] LABS: HCT 25.1 % (39.0-53.0); HGB 8.7 gm/dL (13.0-17.5); MCHC 34.7 g/dL (31.0-37.0); MCV 95.2 fL (80.0-100.0); Mean Platelet Volume 7.2; Platelet Count 147 k/uL (150-450); RBC 2.64 m/uL (4.30-5.90); RDW 15.2 % (11.5-15.5); WBC 8.3 k/uL (3.8-10.6)
[2018-02-08 04:39] LABS: Anion Gap 7 mmol/L; Blood Urea Nitrogen 8 mg/dL (9-20); Calcium 7.7 mg/dL (8.4-10.2); Carbon Dioxide 25 mmol/L (22-30); Chloride 104 mmol/L (98-107); Glucose 115 mg/dL (74-99); Phosphorus 2.6 mg/dL (2.5-4.5); Potassium 3.6 mmol/L (3.5-5.1); Sodium 136 mmol/L (137-145)
[2018-02-08] MEDS: POTASSIUM CHLORIDE 10 MEQ in WATER FOR INJECTION 1 100ML.BAG IVPB SCH ×2 (06:34→08:29)
[2018-02-08] MEDS: MAGNESIUM SULFATE-D5W PMX 1 GM in DEXTROSE/WATER 1 100ML.BAG IVPB SCH ×2 (06:34→08:29)
[2018-02-08] MEDS: SODIUM CHLORIDE 0.9% 1,000 ML IV SCH ×2 (06:35→15:19)
[2018-02-08] MEDS: PANTOPRAZOLE 40 MG/10 ML VIAL IVP SCH ×2 (08:30→21:16)
--- NOTE | 2018-02-08 09:04 | P.PN ---
Subjective Progress Note Date: 02/08/18 Principal diagnosis: GI bleed Admitted with suspected colonic diverticular bleed. No bloody BM x 14 hours. Denies abdominal pain. Afebrile. No emesis. Hemoglobin 8.7. Objective - Vital Signs Vital signs: Vital Signs Temp 97.9 F 02/08/18 08:00 Pulse 80 02/08/18 09:00 Resp 20 02/08/18 09:00 BP 125/69 02/08/18 09:00 Pulse Ox 97 02/08/18 09:00 Intake & Output 02/07/18 02/08/18 02/08/18 18:59 06:59 18:59 Intake Total 2120 1300 700 Output Total 1415 1775 250 Balance 705 -475 450 Weight 85.3 kg 82.8 kg Intake: IV 1500 1300 200 Magnesium Sulfate-D5w Pmx 100 100 1 gm In Dextrose/Water 1 100ml.bag @ 100 mls/hr IVPB Q1H JEWEL Rx#: [id number] Potassium Chloride 10 meq 100 100 In Water For Injection 1 100ml.bag @ 100 mls/hr IVPB Q1H JEWEL Rx#: [id number] Sodium Chloride 0.9% 1, 1000 200 000 ml @ 100 mls/hr IV . Q10H JEWEL Rx#:[id number] Sodium Chloride 0.9% 1, 1300 100 000 ml @ 100 mls/hr IV . Q10H STA Rx#:[id number] Intake, IV Titration 200 Amount Magnesium Sulfate-D5w Pmx 100 1 gm In Dextrose/Water 1 100ml.bag @ 100 mls/hr IVPB Q1H JEWEL Rx#: [id number] Potassium Chloride 10 meq 100 In Water For Injection 1 100ml.bag @ 100 mls/hr IVPB Q1H JEWEL Rx#: [id number] Oral 300 Blood Product 620 Rc As-1 Unit 310 [id number] Output: Urine 1375 1775 250 Stool 40 Other: Voiding Method Urinal Urinal Urinal # Voids 1 # Bowel Movements 1 - Exam General appearance: The patient is alert, oriented, in no acute distress. HET: Head is normocephalic and atraumatic. Pupils are equal and reactive. Oropharynx is clear without lesions. Neck: Supple without lymphadenopathy. Trachea midline. Heart: S1 S2. Regular rate and rhythm. Lungs: No crackles or wheezes are heard. Abdomen: Soft, nontender, nondistended with bowel sounds. No peritoneal signs. No palpable organomegaly or masses. Extremities: Normal skin color and turgor. No cyanosis, rash, ulceration, clubbing, or edema. Radial and pedal pulses are 2/4 bilaterally. Neurological: No focal deficits. Strength and sensation are grossly intact. - Labs CBC & Chem 7: 02/08/18 03:56 02/08/18 03:56 Labs: Abnormal Lab Results - Last 24 Hours (Table) 02/06/18 02/07/18 02/07/18 Range/Units 15:23 15:21 21:07 RBC 2.73 L 2.79 L (4.30-5.90) m/uL Hgb 8.9 L 9.0 L (13.0-17.5) gm/dL Hct 25.9 L 26.2 L (39.0-53.0) % Plt Count 125 L 135 L (150-450) k/uL Sodium (137-145) mmol/L BUN (9-20) mg/dL Creatinine (0.66-1.25) mg/dL Glucose (74-99) mg/dL Calcium (8.4-10.2) mg/dL Crossmatch See Detail 02/08/18 02/08/18 Range/Units 03:56 03:56 RBC 2.64 L (4.30-5.90) m/uL Hgb 8.7 L (13.0-17.5) gm/dL Hct 25.1 L (39.0-53.0) % Plt Count 147 L (150-450) k/uL Sodium 136 L (137-145) mmol/L BUN 8 L (9-20) mg/dL Creatinine 0.60 L (0.66-1.25) mg/dL Glucose 115 H (74-99) mg/dL Calcium 7.7 L (8.4-10.2) mg/dL Crossmatch Assessment and Plan (1) GI bleed Narrative/Plan: 77-year-old gentleman history of colonic diverticular bleed 2 years ago admitted with acute painless lower GI bleed burgundy color bowel movements hourly since early this morning with super therapeutic INR most likely exacerbating GI bleed. Suspect bleeding secondary to colonic diverticulosis however upper GI source cannot be entirely excluded. Current Visit: Yes Status: Acute Code(s): K92.2 - GASTROINTESTINAL HEMORRHAGE, UNSPECIFIED SNOMED Code(s): 65069296 (2) Acute blood loss anemia Current Visit: Yes Status: Acute Code(s): D62 - ACUTE POSTHEMORRHAGIC ANEMIA SNOMED Code(s): 054980170 (3) Colon, diverticulosis Current Visit: Yes Status: Acute Code(s): K57.30 - DVRTCLOS OF LG INT W/O PERFORATION OR ABSCESS W/O BLEEDING SNOMED Code(s): 071621090 (4) Warfarin-induced coagulopathy Current Visit: Yes Status: Acute Code(s): D68.32 - HEMORRHAGIC DISORD D/T EXTRINSIC CIRCULATING ANTICOAGULANTS; T45.515A - ADVERSE EFFECT OF ANTICOAGULANTS, INITIAL ENCOUNTER SNOMED Code(s): 29546626 (5) Hyperbilirubinemia Narrative/Plan: Most likely from acute GI bleed Current Visit: Yes Status: Acute Code(s): E80.6 - OTHER DISORDERS OF BILIRUBIN METABOLISM SNOMED Code(s): 05287589 Plan: 1. CBC monitoring. Continue to hold anticoagulation. 2. Protonix 40 mg twice daily. 3. Clear liquids with Ensure. 4. Inpatient endoscopic exam not planned at this time but contingent on clinical course. Assessment and plan a care discussed with Dr. Jimenez
[2018-02-08 09:05] LABS: HCT 26.9 % (39.0-53.0); HGB 9.2 gm/dL (13.0-17.5); MCH 32.2 pg (25.0-35.0); MCV 94.6 fL (80.0-100.0); Mean Platelet Volume 7.3; Platelet Count 161 k/uL (150-450); RBC 2.85 m/uL (4.30-5.90); RDW 15.5 % (11.5-15.5); WBC 10.6 k/uL (3.8-10.6)
--- NOTE | 2018-02-08 10:39 | P.PN ---
Subjective Progress Note Date: 02/08/18 Principal diagnosis: Acute GI bleeding This is a 77-year-old white male with history of chronic atrial fibrillation, maintained on Coumadin. Patient is also known to have history of hypertension, gout, GERD, patient presented to the ER at [facility] today with sudden onset of GI bleeding, patient noticed bright red blood per rectum and in the toilet when he had his bowel movement earlier today. Patient also felt lightheaded and dizzy, his INR on presentation was 3.8, hemoglobin was 15.8, patient received 2 units of fresh frozen plasma and vitamin K 5 mg. Transferred to [facility], and he was admitted. Patient had a similar episode back in 2016 and he was seen by Dr. Bautista on consultation, underwent colonoscopy, and he was found to have no active bleeding but he did have diverticulosis. Patient takes his Coumadin as instructed, and again his INR was in the therapeutic range. Did not require any blood transfusion so far , patient had a small amount of bloody bowel movement earlier today in our ER. Considering the active bleeding, patient was admitted to the ICU, and I was asked to see him on consultation. GI was already consulted, and the patient is hemodynamically stable at present, presently on 0.9 normal saline at 125 mL per hour. Patient was reevaluated today on 02/07/2018, had another bowel movement which was bloody this morning around 8 AM, but the quantity of bleeding was less. Patient denies any abdominal pain, no fever, no chills, no nausea no vomiting, no hematemesis. Hemoglobin this morning is 7.9, his INR is down to 1.4. So far the patient received a total of 2 units of packed RBCs since admission, and 2 units of fresh frozen plasma. His hemoglobin prior to any blood transfusion was 12.3. And it was a bit higher while he was initially seen at [facility]. Patient is hemodynamically stable, he is basically asymptomatic, but he did have a bloody bowel movement earlier today. Hence I plan to watch him for the next 24 hours in the intensive care unit. Reevaluated today on 02/08/2018, patient had no active bleeding over the last 14 hours. Hemoglobin this morning is 8.7, patient received a total of 3 units of packed RBCs and 2 units of fresh was a plasma since admission. Presently asymptomatic, hence I plan to transfer the patient out of the ICU to a medical floor. Objective - Vital Signs Vital signs: Vital Signs Temp 97.9 F 02/08/18 08:00 Pulse 80 02/08/18 09:00 Resp 20 02/08/18 09:00 BP 125/69 02/08/18 09:00 Pulse Ox 97 02/08/18 09:00 Intake & Output 02/07/18 02/08/18 02/08/18 18:59 06:59 18:59 Intake Total 2120 1300 700 Output Total 1415 1775 250 Balance 705 -475 450 Weight 85.3 kg 82.8 kg Intake: IV 1500 1300 200 Magnesium Sulfate-D5w Pmx 100 100 1 gm In Dextrose/Water 1 100ml.bag @ 100 mls/hr IVPB Q1H JEWEL Rx#: [id number] Potassium Chloride 10 meq 100 100 In Water For Injection 1 100ml.bag @ 100 mls/hr IVPB Q1H JEWEL Rx#: [id number] Sodium Chloride 0.9% 1, 1000 200 000 ml @ 100 mls/hr IV . Q10H JEWEL Rx#:[id number] Sodium Chloride 0.9% 1, 1300 100 000 ml @ 100 mls/hr IV . Q10H STA Rx#:[id number] Intake, IV Titration 200 Amount Magnesium Sulfate-D5w Pmx 100 1 gm In Dextrose/Water 1 100ml.bag @ 100 mls/hr IVPB Q1H JEWEL Rx#: [id number] Potassium Chloride 10 meq 100 In Water For Injection 1 100ml.bag @ 100 mls/hr IVPB Q1H JEWEL Rx#: [id number] Oral 300 Blood Product 620 Rc As-1 Unit 310 [id number] Output: Urine 1375 1775 250 Stool 40 Other: Voiding Method Urinal Urinal Urinal # Voids 1 # Bowel Movements 1 - Exam Physical Exam: Revealed a 77-year-old white male, very pleasant, in no distress. Head: Atraumatic normocephalic. HEENT:[Neck is supple.] [No neck masses.] [No thyromegaly.] [No JVD.] Chest: [Clear throughout, no crackles, no rhonchi, no wheezes.] Cardiac Exam: [Irregular irregular rhythm Normal S1 and S2, no S3 gallop, no murmur.] Abdomen: [Soft, nontender, no megaly, no rebound, no guarding, normal bowel sounds.] Extremities: [No clubbing, no edema, no cyanosis.] Neurological Exam: [No focal neurologic deficit. Psychiatric: Normal mood affect and mental status examination. Lymphatics: No lymphadenopathy was appreciated.] - Labs CBC & Chem 7: 02/08/18 08:53 02/08/18 03:56 Labs: Abnormal Lab Results - Last 24 Hours (Table) 02/06/18 02/07/18 02/07/18 Range/Units 15:23 15:21 21:07 RBC 2.73 L 2.79 L (4.30-5.90) m/uL Hgb 8.9 L 9.0 L (13.0-17.5) gm/dL Hct 25.9 L 26.2 L (39.0-53.0) % Plt Count 125 L 135 L (150-450) k/uL Sodium (137-145) mmol/L BUN (9-20) mg/dL Creatinine (0.66-1.25) mg/dL Glucose (74-99) mg/dL Calcium (8.4-10.2) mg/dL Crossmatch See Detail 02/08/18 02/08/18 02/08/18 Range/Units 03:56 03:56 08:53 RBC 2.64 L 2.85 L (4.30-5.90) m/uL Hgb 8.7 L 9.2 L (13.0-17.5) gm/dL Hct 25.1 L 26.9 L (39.0-53.0) % Plt Count 147 L (150-450) k/uL Sodium 136 L (137-145) mmol/L BUN 8 L (9-20) mg/dL Creatinine 0.60 L (0.66-1.25) mg/dL Glucose 115 H (74-99) mg/dL Calcium 7.7 L (8.4-10.2) mg/dL Crossmatch Assessment and Plan Assessment: Impression: 1: Acute lower GI bleeding most likely secondary to diverticulosis, exacerbated by the fact that the patient was on Coumadin 2: Previous history of lower GI bleeding from diverticular disease back in 2016 , did not require any intervention except contrast. 3 previous history of CVA and left-sided weakness, resolved. 4 chronic atrial fibrillation 59 essential hypertension 6 history of gout 7 history of erectile dysfunction. 8 Coumadin induced coagulopathy. Recommendation: Plan to transfer the patient out of the ICU, continue Protonix, remain off Coumadin, monitor for the next 24-48 hours on a medical floor, and possible discharge home over the weekend. Time with Patient: Less than 30
[2018-02-08] MEDS: ACETAMINOPHEN TAB 325 MG TAB PO PRN (11:11)
--- NOTE | 2018-02-08 14:28 | P.PN ---
Subjective This is a pleasant 87 years old male with past medical history of atrial fibrillation, CVA/TIA, GERD, GI bleed, hyperlipidemia, hypertension, osteoarthritis, who presents with possible lower GI bleed. Patient was noticed painless bleeding per rectum of one-day duration that was started this morning, associated with lightheadedness and dizziness. he was taking extra 2 tab of aspirin for the last two day on the top of his usual baby aspirin for his headache which is improved now. Patient was transferred to the intensive care unit for possible lower GI bleed. His blood pressures in the ICU was 92/56 heart rate 75. Lab work shows creatinine at 0.5, sodium 139 potassium 4.2, magnesium low at 1.3 LFTs within normal limits. INR is 2.1 WBC 10 K, hemoglobin dropped from 12.3 to 9.7 platelet count 208, patient is getting 2 units of red blood cells and 2 units of fresh frozen plasma due to his coagulopathy. 02/07/2018 Patient feels better. He denies chest pain or dyspnea. No more headache. No abdominal pain. He still have painless bleeding per rectum which is improving. His blood pressure is improved and is 119/66, no tachycardia. His hemoglobin is at 7.9, platelets was low at 140 , WBC 9.3 K WNL, INR is down to 1.4, and magnesium is low at 1.3 02/08/2018 Patient still feels stable , He denies chest pain or dyspnea. No more headache. No abdominal pain. his bleeding per rectum has stopped. His blood pressure is improved and is 125/65, no tachycardia. His hemoglobin is at 9.2, platelets was low at 140 no normal at 161, WBC 9.3K WNL, INR is down to 1.4, and magnesium is low at 1.9, patient is being transferred out of the ICU today Patient complained from mild pain on the top of the left foot, no trauma. Exam shows no swelling, redness or deformity and he can move his ankle joints and toes in full range of movement both passively and actively. I don't think it needs further workup, keep monitoring. We'll ask for PT/OT valuation ROS CONSTITUTIONAL: No fever, no malaise, no fatigue. HEENT: No recent visual problems or hearing problems. Denied any sore throat. CARDIOVASCULAR: No orthopnea, PND, no palpitations, no syncope. PULMONARY: No shortness of breath, no cough, no hemoptysis. GASTROINTESTINAL: No diarrhea, no nausea, no vomiting, no abdominal pain. Normoactive bowel sounds. NEUROLOGICAL: No headaches, no weakness, no numbness. HEMATOLOGICAL: Denies any bleeding or petechiae. GENITOURINARY: Denies any burning micturition, frequency, or urgency. MUSCULOSKELETAL/RHEUMATOLOGICAL: Denies any joint pain, swelling, or any muscle pain. ENDOCRINE: Denies any polyuria or polydipsia. Objective - Vital Signs Vital signs: Vital Signs Temp 97.9 F 02/08/18 08:00 Pulse 80 02/08/18 09:00 Resp 20 02/08/18 09:00 BP 125/69 02/08/18 09:00 Pulse Ox 97 02/08/18 09:00 Intake & Output 02/07/18 02/08/18 02/08/18 18:59 06:59 18:59 Intake Total 2120 1300 700 Output Total 1415 1775 250 Balance 705 -475 450 Weight 85.3 kg 82.8 kg Intake: IV 1500 1300 200 Magnesium Sulfate-D5w Pmx 100 100 1 gm In Dextrose/Water 1 100ml.bag @ 100 mls/hr IVPB Q1H JEWEL Rx#: [id number] Potassium Chloride 10 meq 100 100 In Water For Injection 1 100ml.bag @ 100 mls/hr IVPB Q1H JEWEL Rx#: [id number] Sodium Chloride 0.9% 1, 1000 200 000 ml @ 100 mls/hr IV . Q10H JEWEL Rx#:[id number] Sodium Chloride 0.9% 1, 1300 100 000 ml @ 100 mls/hr IV . Q10H STA Rx#:[id number] Intake, IV Titration 200 Amount Magnesium Sulfate-D5w Pmx 100 1 gm In Dextrose/Water 1 100ml.bag @ 100 mls/hr IVPB Q1H JEWEL Rx#: [id number] Potassium Chloride 10 meq 100 In Water For Injection 1 100ml.bag @ 100 mls/hr IVPB Q1H JEWEL Rx#: [id number] Oral 300 Blood Product 620 Rc As-1 Unit 310 [id number] Output: Urine 1375 1775 250 Stool 40 Other: Voiding Method Urinal Urinal Urinal # Voids 1 # Bowel Movements 1 - Exam GENERAL: The patient is alert and oriented x3, not in any acute distress. Well developed, well nourished. HEENT: Pupils are round and equally reacting to light. EOMI. No scleral icterus. No conjunctival pallor. Normocephalic, atraumatic. No pharyngeal erythema. No thyromegaly. CARDIOVASCULAR: S1 and S2 present. No murmurs, rubs, or gallops. PULMONARY: Chest is clear to auscultation, no wheezing or crackles. ABDOMEN: Soft, nontender, nondistended, normoactive bowel sounds. No palpable organomegaly. MUSCULOSKELETAL: No joint swelling or deformity. EXTREMITIES: No cyanosis, clubbing, or pedal edema. NEUROLOGICAL: Gross neurological examination did not reveal any focal deficits. SKIN: No rashes. - Labs CBC & Chem 7: 02/08/18 08:53 02/08/18 03:56 Labs: Abnormal Lab Results - Last 24 Hours (Table) 02/06/18 02/07/18 02/07/18 Range/Units 15:23 15:21 21:07 RBC 2.73 L 2.79 L (4.30-5.90) m/uL Hgb 8.9 L 9.0 L (13.0-17.5) gm/dL Hct 25.9 L 26.2 L (39.0-53.0) % Plt Count 125 L 135 L (150-450) k/uL Sodium (137-145) mmol/L BUN (9-20) mg/dL Creatinine (0.66-1.25) mg/dL Glucose (74-99) mg/dL Calcium (8.4-10.2) mg/dL Crossmatch See Detail 02/08/18 02/08/18 02/08/18 Range/Units 03:56 03:56 08:53 RBC 2.64 L 2.85 L (4.30-5.90) m/uL Hgb 8.7 L 9.2 L (13.0-17.5) gm/dL Hct 25.1 L 26.9 L (39.0-53.0) % Plt Count 147 L (150-450) k/uL Sodium 136 L (137-145) mmol/L BUN 8 L (9-20) mg/dL Creatinine 0.60 L (0.66-1.25) mg/dL Glucose 115 H (74-99) mg/dL Calcium 7.7 L (8.4-10.2) mg/dL Crossmatch Assessment and Plan Plan: -Acute painless rectal bleeding, with a drop in hemoglobin and blood pressure. Monitor lytes labs and vitals. GI and advocacy director consult are appreciated. Holding Coumadin. Continue with Protonix. No colonoscopy is planned currently as per consult team. Patient is a stable and be transferred out of the ICU. Mail Machine Operator specialist consult is appreciated -Coagulopathy with INR 2.1 down to 1.4, patient was on Coumadin which is held in view of acute bleeding per rectum, patient got 2 units of PPF. Follow-up INR. Most likely he would not be started on Coumadin again as per intensive unit specialist recommendation -History of CVA/TIA, and in view of history of A. fib and stroke he was on Coumadin. DC Coumadin now for active bleeding. also DC aspirin as the risk of this medication more than benefits -History of A. fib, DC Coumadin as above. Hold atenolol in view of low blood pressure and active bleeding -Hypertension. Hold atenolol 50 mg daily and losartan 100 mg daily and Norvasc 5 mg daily in view of his low blood pressure -History of hyperlipidemia, was on Zocor 20 mg daily DVT prophylaxis SCDs, no anticoagulation in view of bleeding GI prophylaxis continue with Protonix PT/OT is pending Prognosis is guarded
[2018-02-08 15:47] LABS: HCT 25.2 % (39.0-53.0); HGB 8.7 gm/dL (13.0-17.5); MCH 32.5 pg (25.0-35.0); MCHC 34.4 g/dL (31.0-37.0); MCV 94.5 fL (80.0-100.0); Mean Platelet Volume 7.3; Platelet Count 159 k/uL (150-450); RBC 2.66 m/uL (4.30-5.90); RDW 15.8 % (11.5-15.5); WBC 13.1 k/uL (3.8-10.6)
[2018-02-09] MEDS: SODIUM CHLORIDE 0.9% 1,000 ML IV SCH ×2 (05:30→12:38)
[2018-02-09] MEDS: ACETAMINOPHEN TAB 325 MG TAB PO PRN ×3 (05:32→21:57)
[2018-02-09] MEDS: PANTOPRAZOLE 40 MG/10 ML VIAL IVP SCH ×2 (08:36→21:57)
[2018-02-09 12:09] LABS: HCT 22.9 % (39.0-53.0); HGB 7.8 gm/dL (13.0-17.5); MCH 32.1 pg (25.0-35.0); MCHC 33.8 g/dL (31.0-37.0); MCV 94.9 fL (80.0-100.0); Mean Platelet Volume 7.8; Platelet Count 161 k/uL (150-450); RBC 2.42 m/uL (4.30-5.90); RDW 15.7 % (11.5-15.5); WBC 10.3 k/uL (3.8-10.6)
[2018-02-09] MEDS: ALLOPURINOL 300 MG TAB PO SCH (12:37)
[2018-02-09] MEDS: traMADol 50 MG TAB PO PRN ×2 (12:39→18:13)
--- NOTE | 2018-02-09 12:53 | P.PN ---
Subjective Progress Note Date: 02/09/18 Principal diagnosis: GI bleed Mr. Gusman is a 77 year old male with the past medical history of atrial fibrillation, CVA/TIA, GERD, GI bleed, hypertension, hyperlipidemia, osteoarthritis presented to the hospital with a chief complaint of bleeding per rectum. The patient was having bloody stools for about 1 day and he had associated lightheadedness dizziness and dizziness. In the ED patient was found to have hypotension and eventually transferred to the ICU where the patient received 3 units of PRBCs and 2 platelets for ongoing GI bleed. Patient 's Coumadin was also held in view of his active GI bleed. Patient has been transferred from the ICU yesterday morning . Patient's hemoglobin has been stable for the past [address] Jimenez on board. On 02/09/2018: Patient is lying comfortably in the bed he has no active complaints overnight. He states his last bowel movement was yesterday which was maroon in color. This morning patient states that the small joints of his hand have been hurting. No swelling or redness. ROS CONSTITUTIONAL: No fever, no malaise, no fatigue. HEENT: Denied any sore throat. CARDIOVASCULAR: No orthopnea, PND, no palpitations, no syncope. PULMONARY: No shortness of breath, no cough, no hemoptysis. Objective - Vital Signs Vital signs: Vital Signs Temp 98.2 F 02/09/18 06:17 Pulse 71 02/09/18 06:17 Resp 16 02/09/18 06:17 BP 107/55 02/09/18 06:17 Pulse Ox 97 02/09/18 06:17 Intake & Output 02/08/18 02/09/18 02/09/18 18:59 06:59 18:59 Intake Total 700 Output Total 255 Balance 445 Intake: IV 200 Sodium Chloride 0.9% 1, 200 000 ml @ 100 mls/hr IV . Q10H JEWEL Rx#:[id number] Intake, IV Titration 200 Amount Magnesium Sulfate-D5w Pmx 100 1 gm In Dextrose/Water 1 100ml.bag @ 100 mls/hr IVPB Q1H JEWEL Rx#: [id number] Potassium Chloride 10 meq 100 In Water For Injection 1 100ml.bag @ 100 mls/hr IVPB Q1H JEWEL Rx#: [id number] Oral 300 Output: Urine 251 Stool 4 Other: Voiding Method Urinal # Voids 4 - Exam GENERAL EXAM GENERAL: The patient is alert and oriented x3, not in any acute distress. Well developed, well nourished. HEENT: Pupils are round and equally reacting to light. EOMI. No scleral icterus. No conjunctival pallor. Normocephalic, atraumatic. No pharyngeal erythema. No thyromegaly. CARDIOVASCULAR: S1 and S2 present. Atrial fibrillation rate controlled. No murmurs, rubs, or gallops. PULMONARY: Chest is clear to auscultation, no wheezing or crackles. ABDOMEN: Soft, nontender, nondistended, normoactive bowel sounds. No palpable organomegaly. MUSCULOSKELETAL: No joint swelling or deformity- chronic arthritic changes in the small joints of the hand. EXTREMITIES: No cyanosis, clubbing, or pedal edema. NEUROLOGICAL: Gross neurological examination did not reveal any focal deficits. SKIN: No rashes. - Labs CBC & Chem 7: 02/09/18 11:58 02/08/18 03:56 Labs: Abnormal Lab Results - Last 24 Hours (Table) 02/08/18 Range/Units 15:04 WBC 13.1 H (3.8-10.6) k/uL RBC 2.66 L (4.30-5.90) m/uL Hgb 8.7 L (13.0-17.5) gm/dL Hct 25.2 L (39.0-53.0) % RDW 15.8 H (11.5-15.5) % Assessment and Plan Assessment: Acute lower GI bleed Acute blood loss anemia History of CVA/TIA Atrial fibrillation Hypertension Hyperlipidemia PT/INR monitoring GERD Gouty arthritis Plan: Patient's Coumadin has been held in view of his active lower GI bleed. Patient's hemoglobin has been stable for the past 1 day. Patient did receive 3 units of PRBCs and 2 FFP's on the day of admission. Resume his home medications except blood pressure medications as his blood pressure is still on the lower side. We'll monitor head showed hemorrhage every 12 hours. Continue with Protonix. Patient has been started on clear liquids as per GI recommendations. Further plans depending on the clinical course.
--- NOTE | 2018-02-09 13:32 | P.PN ---
Subjective Progress Note Date: 02/09/18 Principal diagnosis: Acute GI bleed This is a 77-year-old white male with history of chronic atrial fibrillation, maintained on Coumadin. Patient is also known to have history of hypertension, gout, GERD, patient presented to the ER at [facility] today with sudden onset of GI bleeding, patient noticed bright red blood per rectum and in the toilet when he had his bowel movement earlier today. Patient also felt lightheaded and dizzy, his INR on presentation was 3.8, hemoglobin was 15.8, patient received 2 units of fresh frozen plasma and vitamin K 5 mg. Transferred to [facility], and he was admitted. Patient had a similar episode back in 2016 and he was seen by Dr. Bautista on consultation, underwent colonoscopy, and he was found to have no active bleeding but he did have diverticulosis. Patient takes his Coumadin as instructed, and again his INR was in the therapeutic range. Did not require any blood transfusion so far , patient had a small amount of bloody bowel movement earlier today in our ER. Considering the active bleeding, patient was admitted to the ICU, and I was asked to see him on consultation. GI was already consulted, and the patient is hemodynamically stable at present, presently on 0.9 normal saline at 125 mL per hour. Patient was reevaluated today on 02/07/2018, had another bowel movement which was bloody this morning around 8 AM, but the quantity of bleeding was less. Patient denies any abdominal pain, no fever, no chills, no nausea no vomiting, no hematemesis. Hemoglobin this morning is 7.9, his INR is down to 1.4. So far the patient received a total of 2 units of packed RBCs since admission, and 2 units of fresh frozen plasma. His hemoglobin prior to any blood transfusion was 12.3. And it was a bit higher while he was initially seen at [facility]. Patient is hemodynamically stable, he is basically asymptomatic, but he did have a bloody bowel movement earlier today. Hence I plan to watch him for the next 24 hours in the intensive care unit. Reevaluated today on 02/08/2018, patient had no active bleeding over the last 14 hours. Hemoglobin this morning is 8.7, patient received a total of 3 units of packed RBCs and 2 units of fresh was a plasma since admission. Presently asymptomatic, hence I plan to transfer the patient out of the ICU to a medical floor. The patient is seen again today 02/09/2018 in follow-up on the regular medical floor. He is awake and alert in no acute distress. He denies any shortness of breath, cough or congestion. No chills or night sweats. No further bloody bowel movements. Current hemoglobin 7.8. He remains on Protonix 40 mg IVP twice a day. Objective - Vital Signs Vital signs: Vital Signs Temp 98.2 F 02/09/18 06:17 Pulse 71 02/09/18 06:17 Resp 16 02/09/18 06:17 BP 107/55 02/09/18 06:17 Pulse Ox 97 02/09/18 06:17 Intake & Output 02/08/18 02/09/18 02/09/18 18:59 06:59 18:59 Intake Total 700 Output Total 255 Balance 445 Intake: IV 200 Sodium Chloride 0.9% 1, 200 000 ml @ 100 mls/hr IV . Q10H JEWEL Rx#:[id number] Intake, IV Titration 200 Amount Magnesium Sulfate-D5w Pmx 100 1 gm In Dextrose/Water 1 100ml.bag @ 100 mls/hr IVPB Q1H JEWEL Rx#: [id number] Potassium Chloride 10 meq 100 In Water For Injection 1 100ml.bag @ 100 mls/hr IVPB Q1H JEWEL Rx#: [id number] Oral 300 Output: Urine 251 Stool 4 Other: Voiding Method Urinal # Voids 4 - Exam GENERAL EXAM: Alert, comfortable in no apparent distress. HEAD: Normocephalic. EYES: Normal reaction of pupils, equal size. NOSE: Clear with pink turbinates. THROAT: No erythema or exudates. NECK: No masses, no JVD. CHEST: No chest wall deformity. LUNGS: Equal air entry with no crackles, wheeze, rhonchi or dullness. CVS: S1 and S2 normal with no audible murmur, regular rhythm. ABDOMEN: No hepatosplenomegaly, normal bowel sounds, no guarding or rigidity. SPINE: No scoliosis or deformity SKIN: No rashes CENTRAL NERVOUS SYSTEM: No focal deficits, tone is normal in all 4 extremities. EXTREMITIES: The patient is having some joint pain in his hands and left foot. There is no peripheral edema. No clubbing, no cyanosis. Peripheral pulses are intact. Psychiatric: Oriented 3. Intact Judgment. - Labs CBC & Chem 7: 02/09/18 11:58 02/08/18 03:56 Labs: Abnormal Lab Results - Last 24 Hours (Table) 02/08/18 02/09/18 Range/Units 15:04 11:58 WBC 13.1 H (3.8-10.6) k/uL RBC 2.66 L 2.42 L (4.30-5.90) m/uL Hgb 8.7 L 7.8 L (13.0-17.5) gm/dL Hct 25.2 L 22.9 L (39.0-53.0) % RDW 15.8 H 15.7 H (11.5-15.5) % Assessment and Plan Assessment: Impression: 1: Acute lower GI bleeding most likely secondary to diverticulosis, exacerbated by the fact that the patient was on Coumadin 2: Previous history of lower GI bleeding from diverticular disease back in 2016 , did not require any intervention except contrast. 3 previous history of CVA and left-sided weakness, resolved. 4 chronic atrial fibrillation 59 essential hypertension 6 history of gout 7 history of erectile dysfunction. 8 Coumadin induced coagulopathy. Recommendation: The patient was seen and evaluated by Dr. Sneed. He remains stable from the pulmonary and critical care standpoint. We'll see the patient on as-needed basis. I, the cosigning physician, performed a history & physical examination of the patient. Lungs sounds are clear. Maintaining good O2 saturations in the 90s on room air. I discussed the assessment and plan of care with my nurse practitioner, Dai Pascual. I attest to the above note as dictated by her.
--- NOTE | 2018-02-09 15:25 | PN ---
PROGRESS NOTE DATE OF SERVICE: 02/09/2018 Patient is a 77-year-old pleasant white male admitted to the hospital with acute lower GI bleed. He had multiple episodes of bright red blood per rectum 3 days ago but since for the last 24 hours did not have any more bleeding. In fact, he had no bowel movements. He denies any abdominal pain. Reports no nausea or vomiting. Initial hemoglobin was 15.8 and gradually dropped to 7.7 g/dL. He also has been on Coumadin for A. fib for which he received vitamin K and fresh frozen plasma. INR has normalized. He is doing well today. He denies any symptoms. PHYSICAL EXAMINATION: On physical examination, he appears comfortable, in no apparent distress. Vital signs are stable. Blood pressure is 85/56, pulse rate 84 per minute and temperature 95.9. HEENT examination unremarkable. Conjunctivae pink. Sclerae anicteric. Oral cavity, no lesions. NECK; No JVD or lymph node enlargement. Chest was clear to auscultation. HEART: Regular rate and rhythm. ABDOMEN: Soft. Bowel sounds are positive. No organomegaly. EXTREMITIES: No pedal edema. SKIN: No rashes. NEURO: Alert and oriented x3. No focal deficits. LAB: Labs done today, hemoglobin is 7.8, yesterday it was 8.7, WBC 10.3, and platelets are normal. INR is 1.4 two days ago. Basic metabolic panel is within normal limits. IMPRESSION: 1. Acute lower gastrointestinal bleed, most likely diverticular in nature. Patient did have a colonoscopy 2 years ago that showed diverticulosis. Presently bleeding has spontaneously subsided for the last 24 hours and he remains hemodynamically stable. RECOMMENDATIONS: 1. Continue to hold Coumadin. 2. Advance to soft diet. 3. Hemoglobin tomorrow morning. 4. If stable, he can be discharged home with an outpatient follow up in 2 weeks. Thank you for this consultation. MMODL / IJN: [id number] /
[2018-02-09] MEDS: ATORVASTATIN 10 MG TAB PO SCH (21:57)
[2018-02-10] MEDS: SODIUM CHLORIDE 0.9% 1,000 ML IV SCH ×2 (00:26→08:23)
[2018-02-10] MEDS: PANTOPRAZOLE 40 MG/10 ML VIAL IVP SCH (08:18)
[2018-02-10] MEDS: ALLOPURINOL 300 MG TAB PO SCH (08:18)
[2018-02-10 09:02] LABS: HCT 24.5 % (39.0-53.0); MCH 31.7 pg (25.0-35.0); MCHC 32.5 g/dL (31.0-37.0); MCV 97.7 fL (80.0-100.0); Macrocytosis Slight; Mean Platelet Volume 7.3; Platelet Count 204 k/uL (150-450); RBC 2.51 m/uL (4.30-5.90); RDW 15.8 % (11.5-15.5)
[2018-02-10 09:09] LABS: Anion Gap 13 mmol/L; Blood Urea Nitrogen 8 mg/dL (9-20); Calcium 8.1 mg/dL (8.4-10.2); Carbon Dioxide 21 mmol/L (22-30); Chloride 104 mmol/L (98-107); Glucose 151 mg/dL (74-99); Potassium 3.2 mmol/L (3.5-5.1); Sodium 138 mmol/L (137-145)
[2018-02-10] MEDS ORDERED: Potassium Replacement Protocol 1 EACH MISC MISCELLANE PRN (09:27)
[2018-02-10] MEDS: traMADol 50 MG TAB PO PRN (09:34)
[2018-02-10] MEDS: ACETAMINOPHEN TAB 325 MG TAB PO PRN ×2 (11:21→17:24)
[2018-02-10] MEDS: POTASSIUM CHLORIDE ER 20 MEQ TAB.ER PO SCH (11:21)
--- NOTE | 2018-02-10 11:52 | P.PN ---
Subjective Progress Note Date: 02/10/18 Principal diagnosis: GI bleed Mr. Gusman is a 77 year old male with the past medical history of atrial fibrillation, CVA/TIA, GERD, GI bleed, hypertension, hyperlipidemia, osteoarthritis presented to the hospital with a chief complaint of bleeding per rectum. The patient was having bloody stools for about 1 day and he had associated lightheadedness dizziness and dizziness. In the ED patient was found to have hypotension and eventually transferred to the ICU where the patient received 3 units of PRBCs and 2 platelets for ongoing GI bleed. Patient 's Coumadin was also held in view of his active GI bleed. Patient has been transferred from the ICU yesterday morning . Patient's hemoglobin has been stable for the past [address] Jimenez on board. On 02/10 : Patient is lying in the bed comfortably. He states he did not have a bowel movement for the past 2 days. He also complains of pain in the small joints of his hands. His is at the bedside with him today. ROS CONSTITUTIONAL: No fever, no malaise, no fatigue. HEENT: Denied any sore throat. CARDIOVASCULAR: No orthopnea, PND, no palpitations, no syncope. PULMONARY: No shortness of breath, no cough, no hemoptysis. Objective - Vital Signs Vital signs: Vital Signs Temp 98.8 F 02/10/18 05:35 Pulse 66 02/10/18 05:35 Resp 17 02/10/18 05:35 BP 114/53 02/10/18 05:35 Pulse Ox 95 02/10/18 05:35 Intake & Output 02/09/18 02/10/18 02/10/18 18:59 06:59 18:59 Intake Total 1000 Balance 1000 Intake: Oral 1000 Other: Voiding Method Urinal # Voids 3 2 - Exam GENERAL EXAM GENERAL: The patient is alert and oriented x3, not in any acute distress. Well developed, well nourished. HEENT: Pupils are round and equally reacting to light. EOMI. No scleral icterus. No conjunctival pallor. Normocephalic, atraumatic. No pharyngeal erythema. No thyromegaly. CARDIOVASCULAR: S1 and S2 present. Atrial fibrillation rate controlled. No murmurs, rubs, or gallops. PULMONARY: Chest is clear to auscultation, no wheezing or crackles. ABDOMEN: Soft, nontender, nondistended, normoactive bowel sounds. No palpable organomegaly. MUSCULOSKELETAL: No joint swelling or deformity- chronic arthritic changes in the small joints of the hand. EXTREMITIES: No cyanosis, clubbing, or pedal edema. NEUROLOGICAL: Gross neurological examination did not reveal any focal deficits. SKIN: No rashes - Labs CBC & Chem 7: 02/10/18 08:32 02/10/18 08:32 Labs: Abnormal Lab Results - Last 24 Hours (Table) 02/09/18 02/10/18 02/10/18 Range/Units 11:58 08:32 08:32 RBC 2.42 L 2.51 L (4.30-5.90) m/uL Hgb 7.8 L 8.0 L (13.0-17.5) gm/dL Hct 22.9 L 24.5 L (39.0-53.0) % RDW 15.7 H 15.8 H (11.5-15.5) % Potassium 3.2 L (3.5-5.1) mmol/L Carbon Dioxide 21 L (22-30) mmol/L BUN 8 L (9-20) mg/dL Glucose 151 H (74-99) mg/dL Calcium 8.1 L (8.4-10.2) mg/dL Assessment and Plan Assessment: Acute lower GI bleed Acute blood loss anemia History of CVA/TIA Atrial fibrillation Hypertension Hyperlipidemia PT/INR monitoring GERD Gouty arthritis Plan: Patient's Coumadin has been held in view of his active lower GI bleed. Patient's hemoglobin has been stable for the past 2 days. Patient did receive 3 units of PRBCs and 2 FFP's on the day of admission. Patient is trying prune juice to have a bowel movement . If no bowel movement by 4 PM we'll give a dose of Colace. Resume his home medications except blood pressure medications as his blood pressure is still on the lower side. We'll monitor head showed hemorrhage every 12 hours. Continue with Protonix. His diet has been advanced as tolerated. Further plans depending on the clinical course.
[2018-02-10] MEDS ORDERED: DOCUSATE 100 MG CAP PO ONE (16:00)
[2018-02-10] MEDS: PANTOPRAZOLE 40 MG TABLET PO SCH (17:23)
[2018-02-10] MEDS: ATORVASTATIN 10 MG TAB PO SCH (20:26)
--- NOTE | 2018-02-10 21:41 | PN ---
PROGRESS NOTE DATE OF SERVICE: 02/10/2018 Patient is a 77-year-old pleasant white male admitted to hospital with acute lower GI bleed possibly diverticular in nature. He is doing well. His bleeding completely stopped 2 days ago. Presently on a clear liquid diet, tolerating well. He complains of some pain in both upper extremities. He was started on tramadol yesterday. He feels much better. PHYSICAL EXAMINATION: He feels comfortable. He appears comfortable. Blood pressure 127/74, pulse rate 77, temperature 98. HEENT examination unremarkable. Conjunctivae pink. Sclerae anicteric. Oral cavity no lesions. NECK: No jugular venous distention or lymph node enlargement. Chest was clear to auscultation. HEART: Regular rate and rhythm. ABDOMEN: Soft. Bowel sounds are positive. No organomegaly. Extremities: No pedal edema. Skin no rashes. NEUROLOGIC: Alert and oriented x3. No focal deficits. LABS: WBC 9, hemoglobin 8, platelets 204. IMPRESSION: 1. Acute lower gastrointestinal bleed possibly diverticular in nature. Last colonoscopy 2 years ago that showed diverticulosis. Bleeding subsided 2 days ago. Hemoglobin stable at 8 g/dL. 2. Atrial fibrillation on Coumadin, currently on hold. RECOMMENDATIONS: Advance diet as tolerated. Resume Coumadin in 1 week. Follow up in office as needed. Thank you for this consultation. MMODL / IJN: [id number] /
[2018-02-11] MEDS: ALLOPURINOL 300 MG TAB PO SCH (08:15)
[2018-02-11] MEDS: PANTOPRAZOLE 40 MG TABLET PO SCH ×2 (08:15→18:04)
[2018-02-11] MEDS: ACETAMINOPHEN TAB 325 MG TAB PO PRN (08:20)
[2018-02-11 08:40] LABS: HCT 24.8 % (39.0-53.0); HGB 8.3 gm/dL (13.0-17.5); MCH 32.6 pg (25.0-35.0); MCHC 33.3 g/dL (31.0-37.0); MCV 97.6 fL (80.0-100.0); Macrocytosis Slight; Mean Platelet Volume 7.5; Platelet Count 235 k/uL (150-450); RBC 2.54 m/uL (4.30-5.90); RDW 15.8 % (11.5-15.5); WBC 14.3 k/uL (3.8-10.6)
[2018-02-11 08:56] LABS: Anion Gap 12 mmol/L; Blood Urea Nitrogen 7 mg/dL (9-20); Calcium 8.4 mg/dL (8.4-10.2); Carbon Dioxide 23 mmol/L (22-30); Chloride 101 mmol/L (98-107); Glucose 166 mg/dL (74-99); Potassium 3.6 mmol/L (3.5-5.1); Sodium 136 mmol/L (137-145)
--- NOTE | 2018-02-11 11:44 | XR ---
EXAMINATION TYPE: XR chest 2V DATE OF EXAM: 02/11/2018 COMPARISON: NONE INDICATION: Fever TECHNIQUE: Frontal and lateral views of the chest are obtained. FINDINGS: The heart size is normal. The pulmonary vasculature is normal. Some minimal right basilar infiltrate posteriorly is present. Subsegmental atelectasis should be cons idered. There is hyperinflation flattening the diaphragms compatible COPD. IMPRESSION: 1. Suggestion of mild subsegmental atelectasis posterior right lung base. Developing pneumonia could be considered. Follow-up can be performed as clinically indicated.
--- NOTE | 2018-02-11 12:18 | P.PN ---
Subjective Progress Note Date: 02/11/18 Principal diagnosis: GI bleed Mr. Gusman is a 77 year old male with the past medical history of atrial fibrillation, CVA/TIA, GERD, GI bleed, hypertension, hyperlipidemia, osteoarthritis presented to the hospital with a chief complaint of bleeding per rectum. The patient was having bloody stools for about 1 day and he had associated lightheadedness dizziness and dizziness. In the ED patient was found to have hypotension and eventually transferred to the ICU where the patient received 3 units of PRBCs and 2 platelets for ongoing GI bleed. Patient 's Coumadin was also held in view of his active GI bleed. Patient has been transferred from the ICU yesterday morning . Patient's hemoglobin has been stable for the past [address] Jimenez on board. On 02/10 : Patient is lying in the bed comfortably. He states he did not have a bowel movement for the past 2 days. He also complains of pain in the small joints of his hands. His is at the bedside with him today. On 02/11/2018: Patient is lying in the bed comfortably. He had a bowel movement last night that was dark in color. But no blood in the stool. Overall patient states that he feels much better and that his swelling in his in the small hand joints has improved. But on review of his vital signs patient had a temperature of 100.3 and his white count is up to 14. Patient denies having any cough or difficulty in breathing or chest pain. He denies having any burning micturition or blood in his urine. No complaints of swelling of his lower extremities. ROS CONSTITUTIONAL: No fever, no malaise, no fatigue. HEENT: Denied any sore throat. CARDIOVASCULAR: No orthopnea, PND, no palpitations, no syncope. PULMONARY: No shortness of breath, no cough, no hemoptysis. Objective - Vital Signs Vital signs: Vital Signs Temp 99.0 F 02/11/18 08:13 Pulse 91 02/11/18 07:01 Resp 18 02/11/18 07:01 BP 117/66 02/11/18 07:01 Pulse Ox 95 02/11/18 07:01 Intake & Output 02/10/18 02/11/18 02/11/18 18:59 06:59 18:59 Intake Total 300 Balance 300 Intake: Oral 300 Other: # Voids 4 1 2 # Bowel Movements 0 1 - Exam GENERAL EXAM GENERAL: The patient is alert and oriented x3, not in any acute distress. Well developed, well nourished. HEENT: Pupils are round and equally reacting to light. EOMI. No scleral icterus. No conjunctival pallor. Normocephalic, atraumatic. No pharyngeal erythema. No thyromegaly. CARDIOVASCULAR: S1 and S2 present. Atrial fibrillation rate controlled. No murmurs, rubs, or gallops. PULMONARY: Chest is clear to auscultation, no wheezing or crackles. ABDOMEN: Soft, nontender, nondistended, normoactive bowel sounds. No palpable organomegaly. MUSCULOSKELETAL: No joint swelling or deformity- chronic arthritic changes in the small joints of the hand. EXTREMITIES: No cyanosis, clubbing, or pedal edema. NEUROLOGICAL: Gross neurological examination did not reveal any focal deficits. SKIN:No rashes - Labs CBC & Chem 7: 02/11/18 08:22 02/11/18 08:22 Labs: Abnormal Lab Results - Last 24 Hours (Table) 02/11/18 02/11/18 Range/Units 08:22 08:22 WBC 14.3 H (3.8-10.6) k/uL RBC 2.54 L (4.30-5.90) m/uL Hgb 8.3 L (13.0-17.5) gm/dL Hct 24.8 L (39.0-53.0) % RDW 15.8 H (11.5-15.5) % Sodium 136 L (137-145) mmol/L BUN 7 L (9-20) mg/dL Glucose 166 H (74-99) mg/dL Assessment and Plan Assessment: Assessment Acute lower GI bleed Acute blood loss anemia Fever - unclear etiology -workup in progress History of CVA/TIA Atrial fibrillation Hypertension Hyperlipidemia PT/INR monitoring GERD Gouty arthritis Plan: As the patient has fever and an up trending white count - will get a chest x-ray and urine analysis to look for any source of infection. Patient's Coumadin has been held in view of his active lower GI bleed. Patient's hemoglobin has been stable for the past 3 days. Patient did receive 3 units of PRBCs and 2 FFP's on the day of admission. Continue with Protonix. His diet has been advanced as tolerated. Further plans depending on the clinical course.
[2018-02-11 12:48] LABS: Appearance,Urine Clear (Clear); Bilirubin,Urine Negative (Negative); Blood,Urine Negative (Negative); Color,Urine Yellow; Glucose,Urine (UA) Negative (Negative); Ketones,Urine Trace (Negative); Leukocyte Esterase,Urine Negative (Negative); Nitrite,Urine Negative (Negative); PH, Urine 6.5 (5.0-8.0); Protein,Urine Negative (Negative); Specific Gravity,Urine 1.008 (1.001-1.035)
[2018-02-11 13:37] VITALS: BMI 26.2
[2018-02-11] MEDS: ATORVASTATIN 10 MG TAB PO SCH (20:25)
[2018-02-11 23:35] LABS: Glucose,Whole Blood 159 mg/dL (75-99)
[2018-02-12 00:01] LABS: Anisocytosis Slight; Basophils # (A) 0.1 k/uL (0-0.2); Basophils % (A) 0 %; Eosinophils # (A) 0.3 k/uL (0-0.7); Eosinophils % (A) 2 %; HCT 24.5 % (39.0-53.0); Lymphocytes # (A) 2.6 k/uL (1.0-4.8); Lymphocytes % (A) 20 %; MCH 32.2 pg (25.0-35.0); MCHC 32.6 g/dL (31.0-37.0); MCV 98.9 fL (80.0-100.0); Macrocytosis Slight; Mean Platelet Volume 7.3; Monocytes # (A) 0.8 k/uL (0-1.0); Monocytes % (A) 6 %; Neutrophils # (A) 9.3 k/uL (1.3-7.7); Neutrophils % (A) 70 %; Platelet Count 239 k/uL (150-450); RBC 2.48 m/uL (4.30-5.90); RDW 16.3 % (11.5-15.5); WBC 13.3 k/uL (3.8-10.6)
[2018-02-12 00:10] LABS: Anion Gap 15 mmol/L; Blood Urea Nitrogen 9 mg/dL (9-20); Calcium 8.6 mg/dL (8.4-10.2); Carbon Dioxide 19 mmol/L (22-30); Chloride 101 mmol/L (98-107); Glucose 166 mg/dL (74-99); Potassium 3.4 mmol/L (3.5-5.1); Sodium 135 mmol/L (137-145)
--- NOTE | 2018-02-12 00:31 | CT ---
EXAMINATION TYPE: CT brain wo con DATE OF EXAM: 02/12/2018 COMPARISON: NONE HISTORY: FALL WITH AMS CT DLP: 1483.80 mGycm Automated exposure control for dose reduction was used. FINDINGS: There is some cerebral cortical atrophy. There is no mass effect nor midline shift. There is no sign of intracranial hemorrhage. There is 3 cm area of hypodensity in the right posterior frontal lobe cor nandini consistent with old cortical infarct. The calvarium is intact. 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 NO ACUTE INTRACRANIAL ABNORMALITY.
--- NOTE | 2018-02-12 00:39 | CT ---
EXAMINATION TYPE: CT angio head neck DATE OF EXAM: 02/12/2018 HISTORY: FALL WITH AMS COMPARISON: NONE CT DLP: 1483.80 mGycm. Automated Exposure Control for Dose Reduction was Utilized. TECHNIQUE: CTA scan of the neck is performed with IV Contrast, patient injected with 65 mL of Isovue 370, axial images are obtained, coronal and sagittal reformatted images are reviewed. Three-D recons tructed images are created on an independent workstation and reviewed. FINDINGS: There are bilateral pleural effusions. There is normal branching pattern of the great vessels on the aortic arch. There is arterial flow in both vertebral arteries. Left vertebral artery is much larger than the right. There is arterial flow in the common internal and external carotid arteries bilateral ly. There is no evidence of any significant stenosis at the carotid artery bifurcations. There is bryson e atherosclerotic calcification at the carotid artery bifurcations. There is no evidence of carotid a rtery dissection. There are spondylotic changes in the lower cervical spine with bony spinal stenosis at C5-6 and C6-7. There is arterial flow in the anterior middle and posterior cerebral arteries. There is arterial flow in the vertebrobasilar artery system. I see no evidence of aneurysm or neovascularity. I see no evid ence of intracranial arterial stenosis. There is normal contrast opacification of the venous sinuses. IMPRESSION: Minimal atherosclerotic change at the carotid artery bifurcations without evidence of any significant stenosis. Negative CT angiogram of the brain.
[2018-02-12] MEDS: SODIUM CHLORIDE 0.9% 1,000 ML IV SCH ×2 (01:00→16:51)
[2018-02-12 01:19] LABS: Glucose,Whole Blood 181 mg/dL (75-99)
[2018-02-12 04:24] LABS: Anisocytosis Slight; Basophils % (A) 0 %; Eosinophils # (A) 0.1 k/uL (0-0.7); Eosinophils % (A) 0 %; HCT 26.7 % (39.0-53.0); HGB 8.5 gm/dL (13.0-17.5); Hypochromasia Slight; Lymphocytes # (A) 1.2 k/uL (1.0-4.8); Lymphocytes % (A) 8 %; MCH 31.9 pg (25.0-35.0); MCHC 31.9 g/dL (31.0-37.0); MCV 99.8 fL (80.0-100.0); Macrocytosis Slight; Mean Platelet Volume 7.5; Monocytes # (A) 0.8 k/uL (0-1.0); Monocytes % (A) 5 %; Neutrophils % (A) 85 %; Platelet Count 283 k/uL (150-450); RBC 2.67 m/uL (4.30-5.90); RDW 16.3 % (11.5-15.5); WBC 15.3 k/uL (3.8-10.6)
[2018-02-12 04:29] LABS: Anion Gap 14 mmol/L; Blood Urea Nitrogen 9 mg/dL (9-20); Calcium 8.7 mg/dL (8.4-10.2); Carbon Dioxide 21 mmol/L (22-30); Chloride 100 mmol/L (98-107); Glucose 172 mg/dL (74-99); Potassium 3.9 mmol/L (3.5-5.1); Sodium 135 mmol/L (137-145)
[2018-02-12] MEDS: INSULIN ASPART 100 UNIT/ML 1 ML 10 ML VIAL SQ SCH ×3 (06:08→18:24)
--- NOTE | 2018-02-12 10:19 | P.PN ---
Subjective Progress Note Date: 02/12/18 Principal diagnosis: GI bleed Admitted with suspected colonic diverticular bleed. No bloody BM for more than 5 days. Denies abdominal pain. Status post fall "I slumpd over reaching for tissue" in bathroom with LUE weakness possible TIA possible CVA; CT angiography no evidence of stenosis. Transferred to ICU; neurology consult. Hemoglobin 8.5. Objective - Vital Signs Vital signs: Vital Signs Temp 98.9 F 02/12/18 03:00 Pulse 99 02/12/18 05:00 Resp 24 02/12/18 05:00 BP 105/62 02/12/18 05:00 Pulse Ox 97 02/12/18 05:00 Intake & Output 02/11/18 02/12/18 02/12/18 18:59 06:59 18:59 Intake Total 290 100 Output Total 300 Balance 290 -200 Weight 82.8 kg 82.8 kg Intake: Oral 290 100 Output: Urine 300 Other: Voiding Method Urinal Urinal # Voids 2 1 # Bowel Movements 1 - Exam General appearance: The patient is alert, oriented, in no acute distress. Speech is clear appropriate very subtle slur. HET: Head is normocephalic and atraumatic. Pupils are equal and reactive. Oropharynx is clear without lesions. Neck: Supple without lymphadenopathy. Trachea midline. Heart: S1 S2. Regular rate and rhythm. Lungs: No crackles or wheezes are heard. Abdomen: Soft, nontender, nondistended with bowel sounds. No peritoneal signs. No palpable organomegaly or masses. Extremities: LUE weakness. Normal skin color and turgor. No cyanosis, rash, ulceration, clubbing, or edema. Radial and pedal pulses are 2/4 bilaterally. Neurological: No focal deficits. Strength and sensation are grossly intact. - Labs CBC & Chem 7: 02/12/18 03:51 02/12/18 03:51 Labs: Abnormal Lab Results - Last 24 Hours (Table) 02/11/18 02/11/18 02/11/18 Range/Units 12:18 23:33 23:44 WBC 13.3 H (3.8-10.6) k/uL RBC 2.48 L (4.30-5.90) m/uL Hgb 8.0 L (13.0-17.5) gm/dL Hct 24.5 L (39.0-53.0) % RDW 16.3 H (11.5-15.5) % Neutrophils # 9.3 H (1.3-7.7) k/uL Sodium (137-145) mmol/L Potassium (3.5-5.1) mmol/L Carbon Dioxide (22-30) mmol/L Glucose (74-99) mg/dL POC Glucose (mg/dL) 159 H (75-99) mg/dL Troponin I (0.000-0.034) ng/mL Urine Ketones Trace H (Negative) 02/11/18 02/12/18 02/12/18 Range/Units 23:44 00:37 01:18 WBC (3.8-10.6) k/uL RBC (4.30-5.90) m/uL Hgb (13.0-17.5) gm/dL Hct (39.0-53.0) % RDW (11.5-15.5) % Neutrophils # (1.3-7.7) k/uL Sodium 135 L (137-145) mmol/L Potassium 3.4 L (3.5-5.1) mmol/L Carbon Dioxide 19 L (22-30) mmol/L Glucose 166 H (74-99) mg/dL POC Glucose (mg/dL) 181 H (75-99) mg/dL Troponin I 0.388 H* (0.000-0.034) ng/mL Urine Ketones (Negative) 02/12/18 02/12/18 Range/Units 03:51 03:51 WBC 15.3 H (3.8-10.6) k/uL RBC 2.67 L (4.30-5.90) m/uL Hgb 8.5 L (13.0-17.5) gm/dL Hct 26.7 L (39.0-53.0) % RDW 16.3 H (11.5-15.5) % Neutrophils # 13.0 H (1.3-7.7) k/uL Sodium 135 L (137-145) mmol/L Potassium (3.5-5.1) mmol/L Carbon Dioxide 21 L (22-30) mmol/L Glucose 172 H (74-99) mg/dL POC Glucose (mg/dL) (75-99) mg/dL Troponin I (0.000-0.034) ng/mL Urine Ketones (Negative) Microbiology - Last 24 Hours (Table) 02/11/18 12:18 Urine Culture - Preliminary Urine,Voided Assessment and Plan (1) GI bleed Narrative/Plan: 77-year-old gentleman history of colonic diverticular bleed 2 years ago admitted with acute painless lower GI bleed burgundy color bowel movements supratherapeutic INR most likely exacerbating GI bleed. Suspect bleeding secondary to colonic diverticulosis since resolved. Status post fall neurological changes possible TIA possible CVA. Current Visit: Yes Status: Acute Code(s): K92.2 - GASTROINTESTINAL HEMORRHAGE, UNSPECIFIED SNOMED Code(s): 79222100 (2) Acute blood loss anemia Current Visit: Yes Status: Acute Code(s): D62 - ACUTE POSTHEMORRHAGIC ANEMIA SNOMED Code(s): 688166294 (3) Colon, diverticulosis Current Visit: Yes Status: Acute Code(s): K57.30 - DVRTCLOS OF LG INT W/O PERFORATION OR ABSCESS W/O BLEEDING SNOMED Code(s): 433844269 (4) Warfarin-induced coagulopathy Current Visit: Yes Status: Acute Code(s): D68.32 - HEMORRHAGIC DISORD D/T EXTRINSIC CIRCULATING ANTICOAGULANTS; T45.515A - ADVERSE EFFECT OF ANTICOAGULANTS, INITIAL ENCOUNTER SNOMED Code(s): 70213650 (5) Hyperbilirubinemia Current Visit: Yes Status: Acute Code(s): E80.6 - OTHER DISORDERS OF BILIRUBIN METABOLISM SNOMED Code(s): 77225585 (6) LUE weakness Current Visit: Yes Status: Acute Code(s): R29.898 - OTH SYMPTOMS AND SIGNS INVOLVING THE MUSCULOSKELETAL SYSTEM SNOMED Code(s): 527788305 Plan: 1. May proceed with antiplatelet/anticoagulation therapy as indicated by neurology. MRI ordered. CBC monitoring. ICU monitoring. Assessment and plan a care discussed with Dr. Jimenez
[2018-02-12] MEDS: ALLOPURINOL 300 MG TAB PO SCH (10:39)
[2018-02-12] MEDS: PANTOPRAZOLE 40 MG TABLET PO SCH ×2 (10:40→16:51)
[2018-02-12] MEDS ORDERED: ASPIRIN 325 MG TAB PO STA (11:53)
--- NOTE | 2018-02-12 12:10 | CONS ---
CONSULTATION A 77-year-old male patient admitted in the ICU with a GI bleed. Cardiology was consulted on account of history of atrial fibrillation. Currently, the patient has AFib with a heart rate of about 100-110. He normally takes atenolol 50 mg p.o. daily, which is on hold at this time. He started experiencing black stools and came to the hospital, had lower GI bleeding and received packed red cells. At this time, he denies any chest discomfort. No shortness of breath. He looks comfortable. PAST HISTORY: CVA many years back. He sees Dr. Bustamante who is his legal specialist in the [facility]. History of atrial fibrillation, CVA, TIA, GERD, GI bleeding, hypertension, dyslipidemia, and presenting with bleeding per rectum. He was also lightheaded and dizzy at this time. REVIEW OF SYSTEMS: No fever, chills, or rigors. No cough or expectoration. No nausea, vomiting, or diarrhea. No hematuria, dysuria. No recent strokes, seizures. CT angio did not show any acute event or occlusive disease. PHYSICAL EXAMINATION: His temperature was 99 degrees Fahrenheit, pulse rate 90 to 110 beats per minute. Blood pressure 117/66 mmHg and breath sounds are reduced bilaterally. Heart sounds are irregular but normal. Abdomen is soft. Extremities are warm. A 12-lead ECG shows atrial fibrillation. IMPRESSION: 1. Atrial fibrillation with mild RVR in the absence of administration of atenolol as patient is n.p.o. for gastrointestinal workup. Once this is done, atenolol should be begun. 2. Anticoagulation is indicated. He has had a cerebrovascular accident in the past, but now with his gastrointestinal bleeding it becomes problematic, unless there is a clear-cut bleeding focus that can be addressed. 3. As an outpatient, left atrial appendage occlusion device should be considered once the acute event has passed and he will follow up with his legal specialist regarding this. MMODL / IJN: [id number] /
[2018-02-12 13:13] LABS: Glucose,Whole Blood 205 mg/dL (75-99)
--- NOTE | 2018-02-12 15:33 | MR ---
EXAMINATION TYPE: MR brain wo con DATE OF EXAM: 02/12/2018 COMPARISON: 02/12/[address] [facility] head and neck HISTORY: CVA, vision loss, and confusion. TECHNIQUE: Multiplanar, multisequence images of the brain and brainstem is performed without IV contrast. FINDINGS: Diffusion weighted images demonstrate large territorial acute infarct in the distribution o f the right middle cerebral artery involving the temporal, parietal and posterior right frontal lobes extending into the insular cortex sparing the basal ganglia. Corresponding T2 hyperintensity is seen . Additionally T2 shine through in area of scoliosis from prior right frontal lobe encephalomalacia a nd infarct is noted more anterior to the acute area of restricted diffusion. Scattered nonspecific T2 /FLAIR hyperintense foci are seen within the subcortical and periventricular white matter, likely on the basis of chronic microangiopathy and moderate burden. Overall the MRA is limited due to extensive patient motion and fast protocol was used. No midline shift or mass effect is seen. Mild mucosal thickening in the ethmoid sinuses is noted. Tom w voids are difficult to evaluate given patient motion. IMPRESSION: 1. Large territorial acute infarct in the distribution of the right middle cerebral artery involving the right temporal lobe, parietal lobe and posterior right frontal lobe in addition to an area of enc ephalomalacia from prior old branch vessel MCA infarct of the right frontal lobe. 2. Moderate burden nonspecific white matter change, likely on the basis of chronic microangiopathy. 3. Evaluation of flow voids and overall evaluation are limited secondary to excessive patient motion. A [place] level critical message alert has been initiated for Rashmi Archibald via the [employer] Critical Results System on 02/12/2018 3:30 PM. This message alert has been sent to Rashmi Archibald via the preferences provided by the clinician for the receipt of Radiology Critical Findings. Message ID [id number].
--- NOTE | 2018-02-12 16:26 | P.PN ---
Subjective 77 year old male with the past medical history of atrial fibrillation, CVA/TIA, GERD, GI bleed, hypertension, hyperlipidemia, osteoarthritis presented to the hospital with a chief complaint of bleeding per rectum. The patient was having bloody stools for about 1 day and he had associated lightheadedness dizziness and dizziness. In the ED patient was found to have hypotension and eventually transferred to the ICU where the patient received 3 units of PRBCs and 2 platelets for ongoing GI bleed. Patient's Coumadin was also held in view of his active GI bleed. Patient has been transferred from the ICU yesterday morning . Patient's hemoglobin has been stable for the past [address] Jimenez on board. On 02/10 : Patient is lying in the bed comfortably. He states he did not have a bowel movement for the past 2 days. He also complains of pain in the small joints of his hands. His is at the bedside with him today. On 02/11/2018: Patient is lying in the bed comfortably. He had a bowel movement last night that was dark in color. But no blood in the stool. Overall patient states that he feels much better and that his swelling in his in the small hand joints has improved. But on review of his vital signs patient had a temperature of 100.3 and his white count is up to 14. Patient denies having any cough or difficulty in breathing or chest pain. He denies having any burning micturition or blood in his urine. No complaints of swelling of his lower extremities. 02/12/2018 Patient had low-grade fever yesterday urease essentially negative, I do not have any chest x-ray available, patient was transferred last night as he ended up having weakness in the left side. Increasing weakness with almost 0/5 strength in left upper extremity and 4/5 strength in the left lower extremity. CT angios is being obtained MRI was ordered. Neurology was consulted. Coumadin is being resumed as gastroenterology is okay with that. Patient was subsequently transferred to ICU cardiology was consulted as well. Patient was started on aspirin by cardiology. MRI is being obtained, CT angiogram of the head and neck was essentially negative Objective - Vital Signs Vital signs: Vital Signs Temp 98.9 F 02/12/18 03:00 Pulse 81 02/12/18 16:00 Resp 19 02/12/18 16:00 BP 119/55 02/12/18 16:00 Pulse Ox 99 02/12/18 16:00 Intake & Output 02/11/18 02/12/18 02/12/18 18:59 06:59 18:59 Intake Total 290 100 525 Output Total 300 2 Balance 290 -200 523 Weight 82.8 kg 82.8 kg 82.8 kg Intake: Intake, IV Titration 525 Amount Sodium Chloride 0.9% 1, 525 000 ml @ 75 mls/hr IV . [id number] [facility] Rx#:[id number] Oral 290 100 Output: Urine 300 Stool 2 Other: Voiding Method Urinal Urinal Urinal # Voids 2 1 1 # Bowel Movements 1 - Exam GENERAL: The patient is alert and oriented x3, not in any acute distress. Well developed, well nourished. HEENT: Pupils are round and equally reacting to light. EOMI. No scleral icterus. No conjunctival pallor. Normocephalic, atraumatic. No pharyngeal erythema. No thyromegaly. CARDIOVASCULAR: S1 and S2 present. Atrial fibrillation rate controlled. No murmurs, rubs, or gallops. PULMONARY: Chest is clear to auscultation, no wheezing or crackles. ABDOMEN: Soft, nontender, nondistended, normoactive bowel sounds. No palpable organomegaly. MUSCULOSKELETAL: No joint swelling or deformity- chronic arthritic changes in the small joints of the hand. EXTREMITIES: No cyanosis, clubbing, or pedal edema. NEUROLOGICAL: Neuro exam as mentioned above SKIN:No rashes - Labs CBC & Chem 7: 02/12/18 03:51 02/12/18 03:51 Labs: Abnormal Lab Results - Last 24 Hours (Table) 02/11/18 02/11/18 02/11/18 Range/Units 23:33 23:44 23:44 WBC 13.3 H (3.8-10.6) k/uL RBC 2.48 L (4.30-5.90) m/uL Hgb 8.0 L (13.0-17.5) gm/dL Hct 24.5 L (39.0-53.0) % RDW 16.3 H (11.5-15.5) % Neutrophils # 9.3 H (1.3-7.7) k/uL Sodium 135 L (137-145) mmol/L Potassium 3.4 L (3.5-5.1) mmol/L Carbon Dioxide 19 L (22-30) mmol/L Glucose 166 H (74-99) mg/dL POC Glucose (mg/dL) 159 H (75-99) mg/dL Troponin I (0.000-0.034) ng/mL 02/12/18 02/12/18 02/12/18 Range/Units 00:37 01:18 03:51 WBC 15.3 H (3.8-10.6) k/uL RBC 2.67 L (4.30-5.90) m/uL Hgb 8.5 L (13.0-17.5) gm/dL Hct 26.7 L (39.0-53.0) % RDW 16.3 H (11.5-15.5) % Neutrophils # 13.0 H (1.3-7.7) k/uL Sodium (137-145) mmol/L Potassium (3.5-5.1) mmol/L Carbon Dioxide (22-30) mmol/L Glucose (74-99) mg/dL POC Glucose (mg/dL) 181 H (75-99) mg/dL Troponin I 0.388 H* (0.000-0.034) ng/mL 02/12/18 02/12/18 Range/Units 03:51 13:12 WBC (3.8-10.6) k/uL RBC (4.30-5.90) m/uL Hgb (13.0-17.5) gm/dL Hct (39.0-53.0) % RDW (11.5-15.5) % Neutrophils # (1.3-7.7) k/uL Sodium 135 L (137-145) mmol/L Potassium (3.5-5.1) mmol/L Carbon Dioxide 21 L (22-30) mmol/L Glucose 172 H (74-99) mg/dL POC Glucose (mg/dL) 205 H (75-99) mg/dL Troponin I (0.000-0.034) ng/mL Microbiology - Last 24 Hours (Table) 02/11/18 12:18 Urine Culture - Final Urine,Voided Assessment and Plan Plan: Acute CVA involving the left side with about body right cerebral hemisphere, possibly embolic in nature secondary to atrial fibrillation. Patient is awaiting MRI to neurology and cardiology consultations as mentioned above. Patient is on aspirin will discuss with cardiology regarding whether he needs anticoagulation dose of IV heparin considering his possible acute stroke Acute lower GI bleed resolved now and gastroenterology is okay with anticoagulation if needed Acute blood loss anemia, fairly stable hemoglobin, received 3 units of PRBC transfusion since admission Fever -urease negative I do not have chest x-ray which I will obtain, possibly secondary to cerebrovascular accident History of CVA/TIA with residual weakness in the left side Atrial fibrillation presently rate controlled and anticoagulations issues as mentioned above Hypertension Hyperlipidemia PT/INR monitoring GERD Gouty arthritis, chronic with no acute flare up
--- NOTE | 2018-02-12 16:54 | XR ---
EXAMINATION TYPE: XR chest 1V DATE OF EXAM: 02/12/2018 COMPARISON: NONE HISTORY: Possible pneumonia chest pain TECHNIQUE: Single frontal view of the chest is obtained. FINDINGS: There is pulmonary vascular congestion. Heart is enlarged. There are chest leads. Thoracic aorta is atheromatous. IMPRESSION: There is evidence for mild congestive heart failure that is new compared to old exam. No pulmonary consolidation.
[2018-02-12 17:35] LABS: Glucose,Whole Blood 182 mg/dL (75-99)
--- NOTE | 2018-02-12 18:43 | EEG ---
ELECTROENCEPHALOGRAM REPORT DATE OF SERVICE: 02/12/2018 REASON FOR TESTING: Stroke. DESCRIPTION OF THE PROCEDURE: This EEG was performed using a 21-channel digital electroencephalograph, following international 10-20 system. DESCRIPTION OF THE RECORDING: From the beginning of the tracing, and with the patient's eyes closed, the background rhythm was mostly consisting of 7 Hz theta frequency in the posterior occipital leads. No obvious asymmetry is seen. Later in the tracing, muscle artifacts are seen, more on the right leads compared to the left. Photic stimulation was performed with no driving response seen. No pathological waves were elicited. Hyperventilation was not performed. The patient does reach stage II of sleep during the tracing and occasional sleep spindles are seen. No epileptiform discharges were seen. His EKG lead showed an irregularly irregular rhythm with a normal rate. INTERPRETATION: This asleep and awake EEG is abnormal due to the presence of generalized slowing of the background rhythm, mostly in the theta range. This is consistent with mild encephalopathy. No epileptiform discharges were seen. Muscle asymmetry is noticed as mentioned above. Of note, his EKG lead showed an irregularly irregular rhythm with a normal rate. Clinical correlation is recommended. MMODL / IJN: [id number] /
[2018-02-12 21:06] LABS: Glucose,Whole Blood 182 mg/dL (75-99)
[2018-02-12] MEDS: ATORVASTATIN 10 MG TAB PO SCH (21:30)
[2018-02-12] MEDS: ACETAMINOPHEN TAB 325 MG TAB PO PRN (22:42)
[2018-02-12 23:48] LABS: Glucose,Whole Blood 211 mg/dL (75-99)
[2018-02-13] MEDS: INSULIN ASPART 100 UNIT/ML 1 ML 10 ML VIAL SQ SCH ×5 (00:20→23:31)
[2018-02-13 02:19] VITALS: RESP 18
[2018-02-13 06:17] LABS: Glucose,Whole Blood 155 mg/dL (75-99)
[2018-02-13] MEDS: SODIUM CHLORIDE 0.9% 1,000 ML IV SCH (06:29)
[2018-02-13 06:41] LABS: Cholesterol 106 mg/dL (<200); HDL Cholesterol 36 mg/dL (40-60); LDL Cholesterol,Calculated 53 mg/dL (0-99); Triglycerides 83 mg/dL (<150)
[2018-02-13 07:00] LABS: INR 1.2 (<1.2); Prothrombin Time 11.6 sec (9.0-12.0)
[2018-02-13] MEDS ORDERED: ASPIRIN 325 MG TAB PO SCH (09:00)
--- NOTE | 2018-02-13 09:15 | P.PN ---
Subjective Progress Note Date: 02/13/18 Principal diagnosis: GI bleed Admitted with suspected colonic diverticular bleed since resolved. Acute CVA per MRI yesterday. Objective - Vital Signs Vital signs: Vital Signs Temp 99.5 F 02/13/18 04:00 Pulse 94 02/13/18 04:00 Resp 18 02/13/18 04:00 BP 116/77 02/13/18 04:00 Pulse Ox 96 02/13/18 04:00 Intake & Output 02/12/18 02/13/18 02/13/18 18:59 06:59 18:59 Intake Total 600 450 100 Output Total 2 2 Balance 598 448 100 Weight 82.8 kg 83.5 kg Intake: IV 450 Sodium Chloride 0.9% 1, 450 000 ml @ 75 mls/hr IV . [id number] [facility] Rx#:[id number] Intake, IV Titration 600 Amount Sodium Chloride 0.9% 1, 600 000 ml @ 75 mls/hr IV . [id number] [facility] Rx#:[id number] Oral 100 Output: Stool 2 2 Other: Voiding Method Urinal # Voids 1 1 - Exam General appearance: The patient is alert, oriented, in no acute distress. Speech is clear appropriate. HET: Head is normocephalic and atraumatic. Pupils are equal and reactive. Oropharynx is clear without lesions. Neck: Supple without lymphadenopathy. Trachea midline. Heart: S1 S2. Regular rate and rhythm. Lungs: No crackles or wheezes are heard. Abdomen: Soft, nontender, nondistended with bowel sounds. No peritoneal signs. No palpable organomegaly or masses. Extremities: LUE weakness. Normal skin color and turgor. No cyanosis, rash, ulceration, clubbing, or edema. Radial and pedal pulses are 2/4 bilaterally. Neurological: No focal deficits. Strength and sensation are grossly intact. - Labs CBC & Chem 7: 02/12/18 03:51 02/12/18 03:51 Labs: Abnormal Lab Results - Last 24 Hours (Table) 02/12/18 02/12/18 02/12/18 Range/Units 13:12 17:33 21:04 INR (<1.2) POC Glucose (mg/dL) 205 H 182 H 182 H (75-99) mg/dL HDL Cholesterol (40-60) mg/dL 02/12/18 02/13/18 02/13/18 Range/Units 23:46 06:09 06:09 INR 1.2 H (<1.2) POC Glucose (mg/dL) 211 H (75-99) mg/dL HDL Cholesterol 36 L (40-60) mg/dL 02/13/18 Range/Units 06:13 INR (<1.2) POC Glucose (mg/dL) 155 H (75-99) mg/dL HDL Cholesterol (40-60) mg/dL Microbiology - Last 24 Hours (Table) 02/11/18 12:18 Urine Culture - Final Urine,Voided Assessment and Plan (1) GI bleed Narrative/Plan: 77-year-old gentleman history of colonic diverticular bleed 2 years ago admitted with acute painless lower GI bleed burgundy color bowel movements supratherapeutic INR most likely exacerbating GI bleed. Suspect bleeding secondary to colonic diverticulosis since resolved. Status post fall neurological changes possible TIA possible CVA. Current Visit: Yes Status: Acute Code(s): K92.2 - GASTROINTESTINAL HEMORRHAGE, UNSPECIFIED SNOMED Code(s): 55623669 (2) Acute blood loss anemia Current Visit: Yes Status: Acute Code(s): D62 - ACUTE POSTHEMORRHAGIC ANEMIA SNOMED Code(s): 559234364 (3) Colon, diverticulosis Current Visit: Yes Status: Acute Code(s): K57.30 - DVRTCLOS OF LG INT W/O PERFORATION OR ABSCESS W/O BLEEDING SNOMED Code(s): 551390492 (4) Warfarin-induced coagulopathy Current Visit: Yes Status: Acute Code(s): D68.32 - HEMORRHAGIC DISORD D/T EXTRINSIC CIRCULATING ANTICOAGULANTS; T45.515A - ADVERSE EFFECT OF ANTICOAGULANTS, INITIAL ENCOUNTER SNOMED Code(s): 89618420 (5) Acute CVA (cerebrovascular accident) Current Visit: Yes Status: Acute Code(s): I63.9 - CEREBRAL INFARCTION, UNSPECIFIED SNOMED Code(s): 732618376 Plan: 1. Continue present medical therapy. Agreeable for anticoagulation/ aspirin therapy as clinically indicated. We'll follow as needed. We'll sign off. Assessment and plan a care discussed with Dr. Jimenez
[2018-02-13] MEDS: PANTOPRAZOLE 40 MG TABLET PO SCH (09:26)
[2018-02-13] MEDS: ALLOPURINOL 300 MG TAB PO SCH (09:42)
[2018-02-13] MEDS: PANTOPRAZOLE 40 MG/10 ML VIAL IVP SCH (09:42)
--- NOTE | 2018-02-13 10:59 | CONS ---
CONSULTATION DATE OF CONSULTATION: 02/12/2018 CHIEF COMPLAINT: Stroke. HISTORY OF PRESENT ILLNESS: Mr. Gusman is a pleasant 77-year-old, male, who is being evaluated today on 02/12/2018 by the neurology service per the request of Dr. Pérez for a stroke. The patient was brought into [facility] Emergency Room on 02/06/2018 with the complaints of rectal bleeding. The patient was found to have severe anemia and GI has been following the patient. He did receive multiple blood transfusions. The patient has history of atrial fibrillation and had been on Coumadin. His INR was 3.8 on arrival. He was given vitamin K and Coumadin has been held since then. Yesterday, the patient had a sudden onset of left-sided weakness and visual difficulties. A stat CT scan of the brain was done, which showed no acute intracranial abnormalities. I did order an MRI of the brain which did show a large acute ischemic stroke involving the right middle cerebral artery distribution. There was also old ischemic changes seen in the right frontal lobe. The patient did have a previous history of a stroke several years ago but he had recovered completely from that. A CT angiogram of the brain and neck were done, which showed no significant abnormalities. I did review his EEG which showed evidence of mild encephalopathy with no epileptiform discharges. His CBC from today showed leukocytosis at 15.3, and anemia with a hemoglobin of 8.5 and hematocrit at 26%. His basic metabolic profile from today showed hyperglycemia at 172. At the time of my evaluation, the patient is lying in his bed and appears to be in no acute distress. He does have an obvious left-sided weakness. He denied any headache. PAST MEDICAL HISTORY: Atrial fibrillation, history of stroke, gastroesophageal reflux disease, history of GI bleeding, dyslipidemia, hypertension, arthritis, gout, psoriasis, skin cancer, status post resection, orthopedic surgeries, cataract surgery. SOCIAL HISTORY: The patient is a former smoker. He denies any alcohol or drug use. FAMILY HISTORY: Positive for cancer and strokes. HOME MEDICATIONS: Reviewed in the chart. ALLERGIES: No known drug allergies. REVIEW OF SYSTEM: CONSTITUTIONAL: Positive for fatigue. EYES: Positive for decreased visual acuity. ENT: Positive for chronic diminished hearing. CARDIOVASCULAR: As mentioned above. RESPIRATORY: Negative. NEUROLOGICAL: As mentioned above. PSYCHIATRIC: Negative. GASTROINTESTINAL: Positive for occasional heartburn and as mentioned above. GENITOURINARY: Negative. DERMATOLOGICAL: As mentioned above. ENDOCRINE: Negative. MUSCULOSKELETAL: Positive for occasional joint pain. PHYSICAL EXAM: Vital signs show a temperature of 97.8, pulse 81, respiration 19, blood pressure 119/55. GENERAL APPEARANCE: The patient is a well-developed, elderly male, who appears to be in no acute distress. HEENT: Normocephalic, atraumatic. Left facial weakness is noticed. Extraocular muscle testing showed left gaze palsy. NECK: Supple with no masses felt. CARDIOVASCULAR: Irregularly, irregular rhythm with a normal rate. ABDOMEN: Nontender, nondistended. Extremities showed no edema or clubbing. NEUROLOGICAL EXAM: The patient is awake and oriented x3. Speech is mildly dysarthric. Language testing is normal. The patient does follow commands appropriately. His strength is 2/5 in the left upper extremity, 4/5 in the left lower extremity, and 5 minus out of 5 on the right side. Sensory exam was normal to light touch in all 4 extremities. Cranial nerve testing showed left facial weakness and left gaze palsy. He also has left-sided tongue deviation. IMPRESSION: 1. Acute ischemic stroke, right middle cerebral artery distribution. 2. Left hemiparesis. 3. Atrial fibrillation. 4. Coagulopathy. 5. Visual changes. 6. Recent gastrointestinal bleed. RECOMMENDATION: The patient does appear to have suffered an acute ischemic stroke as mentioned above. Does have history of atrial fibrillation and had been on Coumadin for this. Unfortunately, his Coumadin had to be held due to an acute GI bleed. I had a lengthy discussion with the patient and his family regarding the findings. If it is appropriate from a gastroenterology standpoint, the patient should be started on aspirin 325 mg daily. His current stroke was likely embolic in etiology. Physical therapy, occupational therapy, and speech therapy are following the patient. I will order a fasting lipid panel and serum homocysteine level. Continue Protonix for GI prophylaxis. Prognosis is guarded. I will continue to follow with you. Further recommendations to follow. Thank you for allowing me to participate in the care of your patient. If you have any questions, please feel free to contact me. MMODL / IJN: [id number] /
--- NOTE | 2018-02-13 11:47 | CDI ---
Last Revision, August 2017 Documentation Clarification Form Date: 02/13/18 From: No Rosario Admit Date: 02/06/2018 9:56:00 AM Patient Name: Bulmaro Gusman Visit Number: [id number] ATTENTION: The Clinical Documentation Specialists (CDI) and [facility] Coding Staff appreciate your assistance in clarifying documentation. Please respond to the clarification below the line at the bottom and electronically sign. The CDI & [facility] Coding staff will review the response and follow-up if needed. Please note: Queries are made part of the Legal Health Record. If you have any questions, please contact the author of this message via ITS. Dr. Terrence Pérez, Encephalopathy is documented in the consult note 02/13 pt admitted for GI bleed 02/12 the pt had a sudden onset of left sided weakness and visual difficulties History/Risk factors: A-FIB, CVA/TIA, ,GI bleed, hyperlipidemia, HTN, diverticulosis Clinical Indicators: EEG: showed evidence of mild encephalopathy CT/MRI Brain: CT scan of the brain showed no acute intracranial abnormalities. MRI showed a large acute ischemic stroke involving the right middle cerebral artery distribution, and old ischemic changes seen in the right frontal lobe. Consults: Dr. Archibald In your professional opinion, can you please clarify the specific type of encephalopathy, if known? Encephalopathy ruled in Encephalopathy ruled out Please specify: Anoxic Encephalopathy Hypertensive Encephalopathy Metabolic Encephalopathy Other, please specify Unable to determine Please continue to document in your progress notes, under the line below and/or in the discharge summary in order to capture severity of illness and risk of mortality. Include clinical findings that support your diagnosis. MTDD
[2018-02-13 11:50] LABS: Glucose,Whole Blood 208 mg/dL (75-99)
[2018-02-13] MEDS: traMADol 50 MG TAB PO PRN (11:50)
[2018-02-13] MEDS: ATENOLOL 50 MG TAB PO SCH (12:31)
--- NOTE | 2018-02-13 13:52 | P.PN ---
Subjective Progress Note Date: 02/13/18 This is 77-year-old gentleman admitted to the hospital with GI bleed. Cardiology consultation was requested on account of his history of atrial fibrillation. Patient was seen and examined this morning, continues to be in atrial fibrillation with a heart rate in the 110 range. We will resume his Tenormin, we will also decrease his aspirin 81 mg today. Blood pressure 116/60 , heart rate in the 80s, 92% on room air. Objective - Vital Signs Vital signs: Vital Signs Temp 98.5 F 02/13/18 12:00 Pulse 88 02/13/18 12:00 Resp 18 02/13/18 12:00 BP 117/67 02/13/18 12:00 Pulse Ox 92 L 02/13/18 12:00 Intake & Output 02/12/18 02/13/18 02/13/18 18:59 06:59 18:59 Intake Total 600 450 100 Output Total 2 2 Balance 598 448 100 Weight 82.8 kg 83.5 kg Intake: IV 450 Sodium Chloride 0.9% 1, 450 000 ml @ 75 mls/hr IV . [id number] [facility] Rx#:[id number] Intake, IV Titration 600 Amount Sodium Chloride 0.9% 1, 600 000 ml @ 75 mls/hr IV . [id number] [facility] Rx#:[id number] Oral 100 Output: Stool 2 2 Other: Voiding Method Urinal Bedpan Urinal # Voids 1 1 1 # Bowel Movements 0 - Exam PHYSICAL EXAMINATION: GENERAL: This is a 77-year-old gentleman in no apparent distress at the time of her examination. HEENT: Head is atraumatic, normocephalic. Pupils equal, round. Sclera anicteric. Conjunctiva are clear. Mucous membranes of the mouth are moist. Neck is supple. There is no elevated jugular venous pressure.] bruit is heard. HEART EXAMINATION: Heart S1, S2 normal. No murmur or gallop heard. CHEST EXAMINATION: Lungs are clear to auscultation and precussion. No chest wall tenderness is noted on palpation or with deep breathing. ABDOMEN: Soft, nontender. Bowel sounds are heard. No organomegaly noted. EXTREMITIES: 2+ peripheral pulses with no evidence of peripheral edema and no calf tenderness noted. NEUROLOGIC patient is awake, alert and oriented -3. . - Labs CBC & Chem 7: 02/12/18 03:51 02/12/18 03:51 Labs: Abnormal Lab Results - Last 24 Hours (Table) 02/12/18 02/12/18 02/12/18 Range/Units 17:33 21:04 23:46 INR (<1.2) POC Glucose (mg/dL) 182 H 182 H 211 H (75-99) mg/dL HDL Cholesterol (40-60) mg/dL 02/13/18 02/13/18 02/13/18 Range/Units 06:09 06:09 06:13 INR 1.2 H (<1.2) POC Glucose (mg/dL) 155 H (75-99) mg/dL HDL Cholesterol 36 L (40-60) mg/dL 02/13/18 Range/Units 11:48 INR (<1.2) POC Glucose (mg/dL) 208 H (75-99) mg/dL HDL Cholesterol (40-60) mg/dL Microbiology - Last 24 Hours (Table) 02/11/18 12:18 Urine Culture - Final Urine,Voided Assessment and Plan Plan: Assessment and plan #1 atrial fibrillation with mildly rapid ventricular response, chronic persistent. #2 GI bleed #3 prior TIA #4 hypertension # 5 hyperlipidemia Plan From cardiology's perspective, we will resume the patient's the Tenormin, we will also decrease aspirin to 81 mg daily , we will continue to follow. DNP note has been reviewed, I agree with a documented findings and plan of care. Patient was seen and examined.
--- NOTE | 2018-02-13 15:59 | P.CONS ---
History of Present Illness - Chief Complaint Gait disturbance - History of Present Illness I had the opportunity to see patient for inpatient rehab consultation with regard to gait disturbance. He was admitted to [facility] February 06 with lower GI bleed, bright red blood per rectum as well as lightheadedness. Seen in consultation by Dr. Pari Jimenez and Vladimir. Patient noted have warfarin coagulopathy and Coumadin stopped. Patient then developed stroke with left hemiplegia. Head CT demonstrates old right frontal infarct. In February CT with minimal atherosclerosis. Chest x-ray of mild CHF. PT reports two-person total assistance for functional mobility. OT reports total assistance for upper dressing and bathing and two-person total assistance for lower dressing. Speech therapy prescribed. Previous functional history as elicited from patient and corroborated by : 77-year-old right-handed white male who is and lives in one floor home with . Retired. They share the cooking. does laundry. Patient describes independent with standing shower, gait without device and does drive. Has a history smoking doesn't smoke currently. 4-6 beers a day. Regular doctors Dr. Franco Cade and Yesy. Family history hypertension in mother. Review of Systems Review of systems: ENT: Denies sneezes or discharge. Eyes: Denies discharge or photophobia. Cardiac: Denies chest pain or palpitation. Pulmonary: Denies cough or shortness of breath. Gastrointestinal: Mild abdominal discomfort. Genitourinary: Denies discharge or frequency. Musculoskeletal: Denies muscle or bone aches. Neurologic: Left-sided weakness and numbness. Endocrine: Denies shakes or sweats. Oncology: Denies cancers. Dermatologic: Denies rash, itching, pruritus. ALLERGY/immunology: Denies sneezes, rashes. 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 History of Any Multi-Drug Resistant Organisms: None Reported Past Surgical History: Joint Replacement Additional Past Surgical History / Comment(s): LIPOMA REMOVED FROM RIGHT GROIN, BILATERAL TOTAL HIP ARTHROPLASTY, SKIN CANCER REMOVALS, COLONOSCOPY, BILATERAL CATARACT REMOVALS WITH LENS IMPLANTS. Past Anesthesia/Blood Transfusion Reactions: No Reported Reaction Additional Past Anesthesia/Blood Transfusion Reaction / Comm: Pt received blood without reaction. Smoking Status: Former smoker - Past Family History Father Family Medical History: Cancer Additional Family Medical History / Comment(s): Father of cancer (pt does not know what type) at the age of 83 yrs. Mother Family Medical History: Cancer, CVA/TIA Additional Family Medical History / Comment(s): Mother of a CVA at the age of 56yrs. Medications and Allergies Home Medications Medication Instructions Recorded Confirmed Type Allopurinol [Zyloprim] 300 mg PO DAILY 02/06/18 02/06/18 History Atenolol [Tenormin] 50 mg PO DAILY 02/06/18 02/06/18 History Losartan Potassium 100 mg PO DAILY 02/06/18 02/06/18 History Ranitidine HCl [Zantac] 150 mg PO BID 02/06/18 02/06/18 History Simvastatin [Zocor] 20 mg PO HS 02/06/18 02/06/18 History Tadalafil [Cialis] 20 mg PO DAILY PRN 02/06/18 02/06/18 History Warfarin [Coumadin] 2.5 mg PO SUTUTHSA 02/06/18 02/06/18 History Warfarin [Coumadin] 5 mg PO MOWEFR 02/06/18 02/06/18 History amLODIPine [Norvasc] 5 mg PO DAILY 02/06/18 02/06/18 History Allergies Allergy/AdvReac Type Severity Reaction Status Date / Time No Known Allergies Allergy Verified 02/06/18 09:30 Physical Exam Vitals: Vital Signs Temp Pulse Pulse Resp BP BP Pulse Ox 02/13/18 12:00 98.5 F 88 16 117/67 92 L 02/13/18 10:49 18 02/13/18 08:00 97.6 F 95 18 130/65 97 02/13/18 04:00 99.5 F 94 18 116/77 96 02/13/18 00:00 99.6 F 101 H 18 121/60 95 02/12/18 20:00 99.9 F H 90 16 136/62 96 02/12/18 18:00 98.8 F 94 16 124/67 97 02/12/18 16:00 81 19 119/55 99 Intake and Output 02/13/18 02/13/18 02/13/18 06:59 14:59 22:59 Intake Total 450 340 Output Total 220 Balance 450 340 -220 Intake: IV 450 Sodium Chloride 0.9% 1, 450 000 ml @ 75 mls/hr IV . [id number] Rx#:[id number] Oral 340 Output: Urine 220 Other: Voiding Method Bedpan Urinal # Voids 1 1 2 # Bowel Movements 0 0 Weight 83.5 kg Skin: Good color, texture, turgor. General: Medium build and comfortable appearance. Head: Normocephalic, atraumatic. Eyes: Symmetric. Pupils equal round. Ears: Symmetric. Hearing within normal limits. Mouth: Clear. Neck: Supple. Carotid without bruit. Cardiac: Regular rate and rhythm. Lungs: Clear anteriorly and posteriorly. Abdomen: Soft active nontender. Extremities: Normal tone. Neurological: Mental status: Alert, cooperative, pleasant. Cranial nerves: Symmetric facial tone and trapezius. Motor: Normal strength and isolation right arm and leg. Left arm poor and left leg poor plus. Both left arm and leg and synergy. Sensation: Intact right side and depressed left side. DTRs: Symmetric and equal throughout. Mobility: Sits with maximal assistance. Results CBC & Chem 7: 02/12/18 03:51 02/12/18 03:51 Labs: Abnormal Lab Results - Last 24 Hours (Table) 02/12/18 02/12/18 02/12/18 Range/Units 17:33 21:04 23:46 INR (<1.2) POC Glucose (mg/dL) 182 H 182 H 211 H (75-99) mg/dL HDL Cholesterol (40-60) mg/dL 02/13/18 02/13/18 02/13/18 Range/Units 06:09 06:09 06:13 INR 1.2 H (<1.2) POC Glucose (mg/dL) 155 H (75-99) mg/dL HDL Cholesterol 36 L (40-60) mg/dL 02/13/18 Range/Units 11:48 INR (<1.2) POC Glucose (mg/dL) 208 H (75-99) mg/dL HDL Cholesterol (40-60) mg/dL Microbiology - Last 24 Hours (Table) 02/11/18 12:18 Urine Culture - Final Urine,Voided Chest x-ray: report reviewed (Mild CHF.) CT Scan - head: report reviewed (Old right frontal infarct. Angios CT with minimal atherosclerosis.) Assessment and Plan (1) Acute CVA (cerebrovascular accident) Current Visit: Yes Status: Acute Code(s): I63.9 - CEREBRAL INFARCTION, UNSPECIFIED SNOMED Code(s): 736031122 (2) Colon, diverticulosis Current Visit: Yes Status: Acute Code(s): K57.30 - DVRTCLOS OF LG INT W/O PERFORATION OR ABSCESS W/O BLEEDING SNOMED Code(s): 234331762 (3) Warfarin-induced coagulopathy Current Visit: Yes Status: Acute Code(s): D68.32 - HEMORRHAGIC DISORD D/T EXTRINSIC CIRCULATING ANTICOAGULANTS; T45.515A - ADVERSE EFFECT OF ANTICOAGULANTS, INITIAL ENCOUNTER SNOMED Code(s): 73311158 Plan: Impression: 1. Gait disturbance with acute right-sided stroke and left hemiplegia. 2. Lower GI bleed with blood loss anemia. 3. Hypertension. 4. Dyslipidemia. 5. Atrial fibrillation. 6. GERD. Comments and plan: At this time PT and OT are ongoing and speech therapy ordered. Patient currently two-person assist as difficulty participating with therapy out of bed. Have discussed with patient and must be able to tolerate and benefit from therapies out of bed for inpatient rehab.
[2018-02-13 16:29] LABS: Glucose,Whole Blood 191 mg/dL (75-99)
--- NOTE | 2018-02-13 16:29 | P.PN ---
Subjective Progress Note Date: 02/13/18 Principal diagnosis: Stroke This is a pleasant 77-year-old male continuing to be evaluated by the neurology service for stroke. Recall that his presenting symptoms to [facility] were that of rectal bleeding. He continues to be followed by gastroenterology. Early in his course he did receive multiple blood transfusions. He had been on Coumadin for his atrial fibrillation. His INR was 3.8 and he received vitamin K. Subsequently he had a acute onset of left-sided weakness. His stat CT of the brain showed no acute intracranial abnormalities. MRI of the brain showed a large acute ischemic stroke of the right middle cerebral artery distribution. There was also an old stroke of the right frontal lobe seen. CTA of the head and neck showed no significant vascular abnormalities. His EEG showed mild encephalopathy with no seizure activity. At the time of My exam he is being evaluated by speech therapy. He is in no distress. He did eat lunch today with no problems swallowing any type of food or drink. Objective - Vital Signs Vital signs: Vital Signs Temp 98.5 F 02/13/18 12:00 Pulse 88 02/13/18 12:00 Resp 18 02/13/18 12:00 BP 117/67 02/13/18 12:00 Pulse Ox 92 L 02/13/18 12:00 Intake & Output 02/12/18 02/13/18 02/13/18 18:59 06:59 18:59 Intake Total 600 450 340 Output Total 2 2 220 Balance 598 448 120 Weight 82.8 kg 83.5 kg Intake: IV 450 Sodium Chloride 0.9% 1, 450 000 ml @ 75 mls/hr IV . [id number] [facility] Rx#:[id number] Intake, IV Titration 600 Amount Sodium Chloride 0.9% 1, 600 000 ml @ 75 mls/hr IV . [id number] [facility] Rx#:[id number] Oral 340 Output: Urine 220 Stool 2 2 Other: Voiding Method Urinal Bedpan Urinal # Voids 1 1 2 # Bowel Movements 0 - Constitutional General appearance: Present: average body habitus, cooperative, no acute distress - EENT Eyes: Present: EOMI, PERRLA. Absent: abnormal pupil, ptosis ENT: Present: hearing grossly normal - Neck Neck: Present: normal ROM. Absent: rigidity - Respiratory Respiratory: negative: prolonged expiration, prolonged inspiration - Cardiovascular Rhythm: irregularly irregular - Gastrointestinal General gastrointestinal: Absent: distended, tenderness - Neurologic Neurologic Comment(s): Patient is alert awake and oriented 3. Speech is dysarthric, but language testing is normal. There is flaccid paralysis of the left upper extremity 4 out of 5 strength in the left lower extremity. 5 out of 5 on the right. Sensory exam is normal in all 4 extremities. He has left facial weakness, left tongue deviation, and left gaze palsy. - Labs CBC & Chem 7: 02/12/18 03:51 02/12/18 03:51 Labs: Abnormal Lab Results - Last 24 Hours (Table) 02/12/18 02/12/18 02/12/18 Range/Units 17:33 21:04 23:46 INR (<1.2) POC Glucose (mg/dL) 182 H 182 H 211 H (75-99) mg/dL HDL Cholesterol (40-60) mg/dL 02/13/18 02/13/18 02/13/18 Range/Units 06:09 06:09 06:13 INR 1.2 H (<1.2) POC Glucose (mg/dL) 155 H (75-99) mg/dL HDL Cholesterol 36 L (40-60) mg/dL 02/13/18 Range/Units 11:48 INR (<1.2) POC Glucose (mg/dL) 208 H (75-99) mg/dL HDL Cholesterol (40-60) mg/dL Microbiology - Last 24 Hours (Table) 02/11/18 12:18 Urine Culture - Final Urine,Voided Assessment and Plan (1) Left hemiparesis Current Visit: Yes Status: Acute Code(s): G81.94 - HEMIPLEGIA, UNSPECIFIED AFFECTING LEFT NONDOMINANT SIDE SNOMED Code(s): 093080997 (2) Atrial fibrillation Current Visit: Yes Status: Chronic Code(s): I48.91 - UNSPECIFIED ATRIAL FIBRILLATION SNOMED Code(s): 73636311 (3) Acute CVA (cerebrovascular accident) Current Visit: Yes Status: Acute Code(s): I63.9 - CEREBRAL INFARCTION, UNSPECIFIED SNOMED Code(s): 776449292 (4) GI bleed Current Visit: Yes Status: Acute Code(s): K92.2 - GASTROINTESTINAL HEMORRHAGE, UNSPECIFIED SNOMED Code(s): 76234220 (5) Warfarin-induced coagulopathy Current Visit: Yes Status: Resolved Code(s): D68.32 - HEMORRHAGIC DISORD D/ T EXTRINSIC CIRCULATING ANTICOAGULANTS; T45.515A - ADVERSE EFFECT OF ANTICOAGULANTS, INITIAL ENCOUNTER SNOMED Code(s): 66442416 Plan: The patient has suffered an acute ischemic stroke of the right middle cerebral artery distribution. Again his stroke was likely embolic in nature given the above history. Continue intensive work with physical, occupational, and speech therapy. Ideally he should be on Plavix as long as his risk of GI bleeding is acceptable. Continue Lipitor. No further neurological workup is needed at this time. We can be called on as-needed basis for any changes neurological status. I have performed a history and physical on the above patient. I have reviewed the above note, and agree.
--- NOTE | 2018-02-13 17:18 | P.PN ---
Subjective 77 year old male with the past medical history of atrial fibrillation, CVA/TIA, GERD, GI bleed, hypertension, hyperlipidemia, osteoarthritis presented to the hospital with a chief complaint of bleeding per rectum. The patient was having bloody stools for about 1 day and he had associated lightheadedness dizziness and dizziness. In the ED patient was found to have hypotension and eventually transferred to the ICU where the patient received 3 units of PRBCs and 2 platelets for ongoing GI bleed. Patient's Coumadin was also held in view of his active GI bleed. Patient has been transferred from the ICU yesterday morning . Patient's hemoglobin has been stable for the past [address] Jimenez on board. On 02/10 : Patient is lying in the bed comfortably. He states he did not have a bowel movement for the past 2 days. He also complains of pain in the small joints of his hands. His is at the bedside with him today. On 02/11/2018: Patient is lying in the bed comfortably. He had a bowel movement last night that was dark in color. But no blood in the stool. Overall patient states that he feels much better and that his swelling in his in the small hand joints has improved. But on review of his vital signs patient had a temperature of 100.3 and his white count is up to 14. Patient denies having any cough or difficulty in breathing or chest pain. He denies having any burning micturition or blood in his urine. No complaints of swelling of his lower extremities. 02/12/2018 Patient had low-grade fever yesterday urease essentially negative, I do not have any chest x-ray available, patient was transferred last night as he ended up having weakness in the left side. Increasing weakness with almost 0/5 strength in left upper extremity and 4/5 strength in the left lower extremity. CT angios is being obtained MRI was ordered. Neurology was consulted. Coumadin is being resumed as gastroenterology is okay with that. Patient was subsequently transferred to ICU cardiology was consulted as well. Patient was started on aspirin by cardiology. MRI is being obtained, CT angiogram of the head and neck was essentially negative 02/13/2018 Patient has extensive stroke involving the right frontal parietal temporal and occipital areas. Patient is presently on aspirin. Had extensive discussion with the cardiology. They're recommending to start the patient on new anticoagulants starting tomorrow. Dr. Mcintyre from my inpatient intimidation evaluated the patient and his recommending inpatient rehabilitation. Constitutional: Denied any fatigue denied any fever. Cardio vascular: denied any chest pain, palpitations Gastrointestinal denied any nausea vomiting Pulmonary: Denied any shortness of breath cough Neurologic recent stroke without any significant worsening when weakness today Objective - Vital Signs Vital signs: Vital Signs Temp 98.8 F 02/13/18 16:00 Pulse 60 02/13/18 16:00 Resp 18 02/13/18 16:00 BP 106/69 02/13/18 16:00 Pulse Ox 99 02/13/18 16:00 Intake & Output 02/12/18 02/13/18 02/13/18 18:59 06:59 18:59 Intake Total 600 450 340 Output Total 2 2 220 Balance 598 448 120 Weight 82.8 kg 83.5 kg Intake: IV 450 Sodium Chloride 0.9% 1, 450 000 ml @ 75 mls/hr IV . [id number] [facility] Rx#:[id number] Intake, IV Titration 600 Amount Sodium Chloride 0.9% 1, 600 000 ml @ 75 mls/hr IV . [id number] [facility] Rx#:[id number] Oral 340 Output: Urine 220 Stool 2 2 Other: Voiding Method Urinal Bedpan Urinal # Voids 1 1 2 # Bowel Movements 0 - Exam GENERAL: The patient is alert and oriented x3, not in any acute distress. Well developed, well nourished. HEENT: Pupils are round and equally reacting to light. EOMI. No scleral icterus. No conjunctival pallor. Normocephalic, atraumatic. No pharyngeal erythema. No thyromegaly. CARDIOVASCULAR: S1 and S2 present. Atrial fibrillation rate controlled. No murmurs, rubs, or gallops. PULMONARY: Chest is clear to auscultation, no wheezing or crackles. ABDOMEN: Soft, nontender, nondistended, normoactive bowel sounds. No palpable organomegaly. MUSCULOSKELETAL: No joint swelling or deformity- chronic arthritic changes in the small joints of the hand. EXTREMITIES: No cyanosis, clubbing, or pedal edema. NEUROLOGICAL: Neuro exam as mentioned above SKIN:No rashes - Labs CBC & Chem 7: 02/12/18 03:51 02/12/18 03:51 Labs: Abnormal Lab Results - Last 24 Hours (Table) 02/12/18 02/12/18 02/12/18 Range/Units 17:33 21:04 23:46 INR (<1.2) POC Glucose (mg/dL) 182 H 182 H 211 H (75-99) mg/dL HDL Cholesterol (40-60) mg/dL 02/13/18 02/13/18 02/13/18 Range/Units 06:09 06:09 06:13 INR 1.2 H (<1.2) POC Glucose (mg/dL) 155 H (75-99) mg/dL HDL Cholesterol 36 L (40-60) mg/dL 02/13/18 02/13/18 Range/Units 11:48 16:26 INR (<1.2) POC Glucose (mg/dL) 208 H 191 H (75-99) mg/dL HDL Cholesterol (40-60) mg/dL Assessment and Plan Plan: Acute CVA involving the left side with about body right cerebral hemisphere, possibly embolic in nature secondary to atrial fibrillation. Patient has extensive stroke involving the entire right cerebral hemisphere as mentioned above. Patient's anticoagulations will be resumed tomorrow. Acute lower GI bleed resolved now and gastroenterology is okay with anticoagulation if needed Acute blood loss anemia, fairly stable hemoglobin, received 3 units of PRBC transfusion since admission Fever -urease negative I do not have chest x-ray which I will obtain, possibly secondary to cerebrovascular accident History of CVA/TIA with residual weakness in the left side Atrial fibrillation presently rate controlled and anticoagulations issues as mentioned above Hypertension Hyperlipidemia PT/INR monitoring GERD Gouty arthritis, chronic with no acute flare up
[2018-02-13] MEDS: ATORVASTATIN 10 MG TAB PO SCH (20:52)
[2018-02-13 23:28] LABS: Glucose,Whole Blood 189 mg/dL (75-99)
[2018-02-14 06:18] LABS: Glucose,Whole Blood 215 mg/dL (75-99)
[2018-02-14] MEDS: INSULIN ASPART 100 UNIT/ML 1 ML 10 ML VIAL SQ SCH ×2 (06:20→12:21)
[2018-02-14 06:52] LABS: HCT 23.7 % (39.0-53.0); HGB 7.5 gm/dL (13.0-17.5); Hypochromasia Moderate; MCHC 31.5 g/dL (31.0-37.0); MCV 98.5 fL (80.0-100.0); Macrocytosis Slight; Mean Platelet Volume 7.7; Platelet Count 270 k/uL (150-450); Poikilocytosis Slight; RBC 2.41 m/uL (4.30-5.90); RDW 15.5 % (11.5-15.5); WBC 10.8 k/uL (3.8-10.6)
[2018-02-14 07:01] LABS: INR 1.3 (<1.2); Prothrombin Time 12.4 sec (9.0-12.0)
[2018-02-14 07:12] LABS: Anion Gap 17 mmol/L; Blood Urea Nitrogen 15 mg/dL (9-20); Calcium 8.2 mg/dL (8.4-10.2); Carbon Dioxide 18 mmol/L (22-30); Chloride 102 mmol/L (98-107); Glucose 209 mg/dL (74-99); Potassium 3.9 mmol/L (3.5-5.1); Sodium 137 mmol/L (137-145)
[2018-02-14] MEDS ORDERED: ASPIRIN 81 MG PO SCH (09:00)
[2018-02-14] MEDS: ATENOLOL 50 MG TAB PO SCH (10:04)
[2018-02-14] MEDS: ALLOPURINOL 300 MG TAB PO SCH (10:04)
[2018-02-14] MEDS: PANTOPRAZOLE 40 MG/10 ML VIAL IVP SCH (10:04)
[2018-02-14] MEDS ORDERED: APIXABAN 5 MG TAB PO SCH (11:45)
[2018-02-14 11:57] LABS: Glucose,Whole Blood 205 mg/dL (75-99)
--- NOTE | 2018-02-14 12:20 | P.PN ---
Subjective Progress Note Date: 02/14/18 This is 77-year-old gentleman admitted to the hospital with GI bleed. Cardiology consultation was requested on account of his history of atrial fibrillation. Patient was seen and examined this morning, continues to be in atrial fibrillation with a heart rate in the 110 range. We will resume his Tenormin, we will also decrease his aspirin 81 mg today. Blood pressure 116/60 , heart rate in the 80s, 92% on room air. 02/14/2018 Patient seen and examined this morning, doing much better overall. Blood pressure 122/70, heart rate in the 70s. Patient is currently on Eliquis 5 mg one tablet by mouth twice a day, aspirin 81 mg daily, atenolol 50 mg daily, Lipitor 10 mg daily, which we will continue. Objective - Vital Signs Vital signs: Vital Signs Temp 97.8 F 02/14/18 08:00 Pulse 77 02/14/18 08:00 Resp 18 02/14/18 08:00 BP 122/71 02/14/18 08:00 Pulse Ox 94 L 02/14/18 08:00 Intake & Output 02/13/18 02/14/18 02/14/18 18:59 06:59 18:59 Intake Total 458 300 200 Output Total 220 300 Balance 238 0 200 Weight 83 kg Intake: IV 300 Sodium Chloride 0.9% 1, 300 000 ml @ 75 mls/hr IV . [id number] [facility] Rx#:[id number] Oral 458 200 Output: Urine 220 300 Other: Voiding Method Bedpan Bedpan Urinal Urinal Urinal # Voids 2 1 # Bowel Movements 0 - Exam PHYSICAL EXAMINATION: GENERAL: This is a 77-year-old gentleman in no apparent distress at the time of her examination. HEENT: Head is atraumatic, normocephalic. Pupils equal, round. Sclera anicteric. Conjunctiva are clear. Mucous membranes of the mouth are moist. Neck is supple. There is no elevated jugular venous pressure.] bruit is heard. HEART EXAMINATION: Heart S1, S2 normal. No murmur or gallop heard. CHEST EXAMINATION: Lungs are clear to auscultation and precussion. No chest wall tenderness is noted on palpation or with deep breathing. ABDOMEN: Soft, nontender. Bowel sounds are heard. No organomegaly noted. EXTREMITIES: 2+ peripheral pulses with no evidence of peripheral edema and no calf tenderness noted. NEUROLOGIC patient is awake, alert and oriented -3. . - Labs CBC & Chem 7: 02/14/18 06:03 02/14/18 06:03 Labs: Abnormal Lab Results - Last 24 Hours (Table) 02/13/18 02/13/18 02/14/18 Range/Units 16:26 23:26 06:03 WBC (3.8-10.6) k/uL RBC (4.30-5.90) m/uL Hgb (13.0-17.5) gm/dL Hct (39.0-53.0) % PT 12.4 H (9.0-12.0) sec INR 1.3 H (<1.2) Carbon Dioxide (22-30) mmol/L Glucose (74-99) mg/dL POC Glucose (mg/dL) 191 H 189 H (75-99) mg/dL Calcium (8.4-10.2) mg/dL 02/14/18 02/14/18 02/14/18 Range/Units 06:03 06:03 06:16 WBC 10.8 H (3.8-10.6) k/uL RBC 2.41 L (4.30-5.90) m/uL Hgb 7.5 L (13.0-17.5) gm/dL Hct 23.7 L (39.0-53.0) % PT (9.0-12.0) sec INR (<1.2) Carbon Dioxide 18 L (22-30) mmol/L Glucose 209 H (74-99) mg/dL POC Glucose (mg/dL) 215 H (75-99) mg/dL Calcium 8.2 L (8.4-10.2) mg/dL 02/14/18 Range/Units 11:53 WBC (3.8-10.6) k/uL RBC (4.30-5.90) m/uL Hgb (13.0-17.5) gm/dL Hct (39.0-53.0) % PT (9.0-12.0) sec INR (<1.2) Carbon Dioxide (22-30) mmol/L Glucose (74-99) mg/dL POC Glucose (mg/dL) 205 H (75-99) mg/dL Calcium (8.4-10.2) mg/dL Assessment and Plan Plan: Assessment and plan #1 atrial fibrillation with mildly rapid ventricular response, chronic persistent. #2 GI bleed #3 prior TIA #4 hypertension # 5 hyperlipidemia Plan From cardiology's perspective, we will recommend to continue the patient on his current medications. We will follow along with you now on an as-needed basis only, please hesitate to call with any questions. DNP note has been reviewed, I agree with a documented findings and plan of care. Patient was seen and examined.
[2018-02-14 13:36] VITALS: BP 125/70; PULSE 69; TEMP 97.2
--- NOTE | 2018-02-14 14:48 | P.DS ---
Providers Date of admission: 02/06/18 09:56 Attending physician: Terrence Pérez Consults: 02/06/18 10:07 Consult Physician Stat Consulting Provider: Kurt Sneed Consult Reason/Comments: GI bleed Do you want consulting provider notified?: Yes 02/12/18 00:51 Consult Physician Stat Consulting Provider: Rashmi Archibald Consult Reason/Comments: Code stroke Do you want consulting provider notified?: Yes 02/12/18 01:31 Consult Physician Stat Consulting Provider: Adele Bashir Consult Reason/Comments: afib rvr, stroke Do you want consulting provider notified?: Yes 02/13/18 11:42 Consult Physician Routine Consulting Provider: Benny Ren Consult Reason/Comments: eval for inpatient rehab Do you want consulting provider notified?: Yes Primary care physician: Pedro Cade MD Hospital Course: 77 year old male with the past medical history of atrial fibrillation, CVA/TIA, GERD, GI bleed, hypertension, hyperlipidemia, osteoarthritis presented to the hospital with a chief complaint of bleeding per rectum. The patient was having bloody stools for about 1 day and he had associated lightheadedness dizziness and dizziness. In the ED patient was found to have hypotension and eventually transferred to the ICU where the patient received 3 units of PRBCs and 2 platelets for ongoing GI bleed. Patient's Coumadin was also held in view of his active GI bleed. Patient has been transferred from the ICU yesterday morning . Patient's hemoglobin has been stable for the past [address] Jimenez on board. On 02/10 : Patient is lying in the bed comfortably. He states he did not have a bowel movement for the past 2 days. He also complains of pain in the small joints of his hands. His is at the bedside with him today. On 02/11/2018: Patient is lying in the bed comfortably. He had a bowel movement last night that was dark in color. But no blood in the stool. Overall patient states that he feels much better and that his swelling in his in the small hand joints has improved. But on review of his vital signs patient had a temperature of 100.3 and his white count is up to 14. Patient denies having any cough or difficulty in breathing or chest pain. He denies having any burning micturition or blood in his urine. No complaints of swelling of his lower extremities. 02/12/2018 Patient had low-grade fever yesterday urease essentially negative, I do not have any chest x-ray available, patient was transferred last night as he ended up having weakness in the left side. Increasing weakness with almost 0/5 strength in left upper extremity and 4/5 strength in the left lower extremity. CT angios is being obtained MRI was ordered. Neurology was consulted. Coumadin is being resumed as gastroenterology is okay with that. Patient was subsequently transferred to ICU cardiology was consulted as well. Patient was started on aspirin by cardiology. MRI is being obtained, CT angiogram of the head and neck was essentially negative 02/13/2018 Patient has extensive stroke involving the right frontal parietal temporal and occipital areas. Patient is presently on aspirin. Had extensive discussion with the cardiology. They're recommending to start the patient on new anticoagulants starting tomorrow. Dr. Mcintyre from my inpatient intimidation evaluated the patient and his recommending inpatient rehabilitation. 02/14/2018 Patient will be discharged to inpatient rehab today. Patient was resumed on anti-correlation for atrial fibrillation with near anticoagulants as recommended by cardiology. GENERAL: The patient is alert and oriented x3, not in any acute distress. Well developed, well nourished. HEENT: Pupils are round and equally reacting to light. EOMI. No scleral icterus. No conjunctival pallor. Normocephalic, atraumatic. No pharyngeal erythema. No thyromegaly. CARDIOVASCULAR: S1 and S2 present. Atrial fibrillation rate controlled. No murmurs, rubs, or gallops. PULMONARY: Chest is clear to auscultation, no wheezing or crackles. ABDOMEN: Soft, nontender, nondistended, normoactive bowel sounds. No palpable organomegaly. MUSCULOSKELETAL: No joint swelling or deformity- chronic arthritic changes in the small joints of the hand. EXTREMITIES: No cyanosis, clubbing, or pedal edema. NEUROLOGICAL: Neuro exam as mentioned above SKIN:No rashes Assessment and Plan Plan: Acute CVA involving the left side with about body right cerebral hemisphere, possibly embolic in nature secondary to atrial fibrillation. Patient has extensive stroke involving the entire right cerebral hemisphere as mentioned above. P Acute lower GI bleed resolved now and gastroenterology is okay with anticoagulation Acute blood loss anemia, fairly stable hemoglobin, received 3 units of PRBC transfusion since admission Fever -secondary to several vascular accident, no infection at this time History of CVA/TIA with residual weakness in the left side Atrial fibrillation presently rate controlled and anticoagulations issues as mentioned above Hypertension Hyperlipidemia PT/INR monitoring GERD Gouty arthritis, chronic with no acute flare up Patient Condition at Discharge: Stable Plan - Discharge Summary Discharge Rx Participant: No New Discharge Prescriptions: New Acetaminophen Tab [Tylenol] 650 mg PO Q6HR PRN tab PRN Reason: Fever and/ or MILD Pain Apixaban [Eliquis] 5 mg PO BID #30 tab Atenolol [Tenormin] 50 mg PO DAILY tab Atorvastatin [Lipitor] 40 mg PO HS tab Continue Ranitidine HCl [Zantac] 150 mg PO BID Atenolol [Tenormin] 50 mg PO DAILY Allopurinol [Zyloprim] 300 mg PO DAILY Tadalafil [Cialis] 20 mg PO DAILY PRN PRN Reason: ED Discontinued amLODIPine [Norvasc] 5 mg PO DAILY Simvastatin [Zocor] 20 mg PO HS Warfarin [Coumadin] 5 mg PO MOWEFR Warfarin [Coumadin] 2.5 mg PO SUTUTHSA Losartan Potassium 100 mg PO DAILY Discharge Medication List Allopurinol [Zyloprim] 300 mg PO DAILY 02/06/18 [History] Atenolol [Tenormin] 50 mg PO DAILY 02/06/18 [History] Ranitidine HCl [Zantac] 150 mg PO BID 02/06/18 [History] Tadalafil [Cialis] 20 mg PO DAILY PRN 02/06/18 [History] Acetaminophen Tab [Tylenol] 650 mg PO Q6HR PRN tab 02/14/18 [Rx] Apixaban [Eliquis] 5 mg PO BID #30 tab 02/14/18 [Rx] Atenolol [Tenormin] 50 mg PO DAILY tab 02/14/18 [Rx] Atorvastatin [Lipitor] 40 mg PO HS tab 02/14/18 [Rx] Follow up Appointment(s)/Referral(s): Pedro Cade MD [Primary Care Provider] - 02/20/18 12:00 pm (Sunday) Latha Jimenez MD [STAFF PHYSICIAN] - 02/26/18 4:15 pm ([facility]) Rashmi Archibald MD [STAFF PHYSICIAN] - 2 Weeks Patient Instructions/Handouts: Gastrointestinal Bleeding (DC), Stroke (DC) Discharge Disposition: OTHER INSTITUTION NOT DEFINED
--- NOTE | 2018-02-15 07:25 | CDI ---
Last Revision, August 2017 Documentation Clarification Form Date: 02/13/2018 11:47:00 AM From: No Rosario RN Admit Date: 02/06/2018 9:56:00 AM Patient Name: Bulmaro Gusman Visit Number: [id number] ATTENTION: The Clinical Documentation Specialists (CDI) and [facility] Coding Staff appreciate your assistance in clarifying documentation. Please respond to the clarification below the line at the bottom and electronically sign. The CDI & [facility] Coding staff will review the response and follow-up if needed. Please note: Queries are made part of the Legal Health Record. If you have any questions, please contact the author of this message via ITS. Dr. Rashmi Archibald, Encephalopathy is documented in the consult note 02/13 pt admitted for GI bleed 02/12 the pt had a sudden onset of left sided weakness and visual difficulties History/Risk factors: A-FIB, CVA/TIA, ,GI bleed, hyperlipidemia, HTN, diverticulosis Clinical Indicators: EEG: showed evidence of mild encephalopathy CT/MRI Brain: CT scan of the brain showed no acute intracranial abnormalities. MRI showed a large acute ischemic stroke involving the right middle cerebral artery distribution, and old ischemic changes seen in the right frontal lobe. Consults: Neurology In your professional opinion, can you please clarify the specific type of encephalopathy, if known? Encephalopathy ruled in Encephalopathy ruled out Please specify: Anoxic Encephalopathy Hypertensive Encephalopathy Metabolic Encephalopathy Other, please specify Unable to determine Please continue to document in your progress notes, under the line below and/or in the discharge summary in order to capture severity of illness and risk of mortality. Include clinical findings that support your diagnosis. MTDD
--- NOTE | 2018-02-20 08:13 | CDI ---
Last Revision, August 2017 Documentation Clarification Form Date: 02/13/2018 11:47:00 AM From: No Rosario RN Admit Date: 02/06/2018 9:56:00 AM Patient Name: Bulmaro Gusman Visit Number: [id number] Discharge Date: 02/14/18 ATTENTION: The Clinical Documentation Specialists (CDI) and [facility] Coding Staff appreciate your assistance in clarifying documentation. Please respond to the clarification below the line at the bottom and electronically sign. The CDI & [facility] Coding staff will review the response and follow-up if needed. Please note: Queries are made part of the Legal Health Record. If you have any questions, please contact the author of this message via ITS. Dr. Rashmi Archibald, (third request), Encephalopathy is documented in the consult note 02/13 pt admitted for GI bleed 02/12 the pt had a sudden onset of left sided weakness and visual difficulties History/Risk factors: A-FIB, CVA/TIA, ,GI bleed, hyperlipidemia, HTN, diverticulosis Clinical Indicators: EEG: showed evidence of mild encephalopathy CT/MRI Brain: CT scan of the brain showed no acute intracranial abnormalities. MRI showed a large acute ischemic stroke involving the right middle cerebral artery distribution, and old ischemic changes seen in the right frontal lobe. Consults: Dr. Archibald In your professional opinion, can you please clarify the specific type of encephalopathy, if known? Encephalopathy ruled in Encephalopathy ruled out Please specify: Anoxic Encephalopathy Hypertensive Encephalopathy Metabolic Encephalopathy Other, please specify Unable to determine Please continue to document in your progress notes, under the line below and/or in the discharge summary in order to capture severity of illness and risk of mortality. Include clinical findings that support your diagnosis. MTDD
== END 2018-02-14 16:11 | DRG 377 ==
LOC: EC 08:48 → 4MS4W 09:56 → 6ICU 10:34 → 4MS4W 02-08 11:15 → 6ICU 02-12 01:03 → 6SEL 02-12 18:02
PROVIDERS: ADMIT Internal Medicine; ATTEND Internal Medicine
PROC: 30233K1 Transfusion of Nonautologous Frozen Plasma into Peripheral Vein, Percutaneous Approach (ICD-10-PCS; principal; 2018-02-06)
PROC: 30233N1 Transfusion of Nonautologous Red Blood Cells into Peripheral Vein, Percutaneous Approach (ICD-10-PCS; principal; 2018-02-06)
DX: K57.31 Diverticulosis of large intestine without perforation or abscess with bleeding (principal); I63.511 Cerebral infarction due to unspecified occlusion or stenosis of right middle cerebral artery; G93.40 Encephalopathy, unspecified; D62 Acute posthemorrhagic anemia; R17 Unspecified jaundice; I69.354 Hemiplegia and hemiparesis following cerebral infarction affecting left non-dominant side; R79.1 Abnormal coagulation profile; D72.829 Elevated white blood cell count, unspecified; E78.5 Hyperlipidemia, unspecified; I11.0 Hypertensive heart disease with heart failure; I48.2 Chronic atrial fibrillation; K21.9 Gastro-esophageal reflux disease without esophagitis; M10.9 Gout, unspecified; Z79.01 Long term (current) use of anticoagulants; Z79.82 Long term (current) use of aspirin; Z79.899 Other long term (current) drug therapy; Z80.9 Family history of malignant neoplasm, unspecified; Z82.3 Family history of stroke; Z82.49 Family history of ischemic heart disease and other diseases of the circulatory system; Z85.828 Personal history of other malignant neoplasm of skin; Z87.891 Personal history of nicotine dependence; Z98.42 Cataract extraction status, left eye; Z98.41 Cataract extraction status, right eye; Z96.1 Presence of intraocular lens; Z96.643 Presence of artificial hip joint, bilateral; T45.515A Adverse effect of anticoagulants, initial encounter; I50.9 Heart failure, unspecified; R29.714 NIHSS score 14
CPT/HCPCS: 36415; 70450; 70496; 70498; 70551; 71045; 71046; 80048; 80053; 80061; 81003; 83090; 83735; 84100; 84132; 84484; 85025; 85027; 85610; 86850; 86900; 86901; 86920; 87086; 93005; 94760; 95819; 99285